=== PATIENT | male | born 1930 | race Caucasian/White ===

== ENCOUNTER 2016-10-09 07:16 | Inpatient (IN) | payer OTHER, MEDICARE ==
[2016-10-09 08:02] LABS: % EOSINOPHILS 1.1 % (0.0-5.0); % LYMPHOCYTES 19.9 % (20.0-50.0); % MONOCYTES 7.3 % (2.0-10.0); % NEUTROPHILS 71.7 % (40.0-80.0); HEMATOCRIT 40.8 % (39.0-49.0); HEMOGLOBIN 13.2 gm/dL (12.6-17.4); MEAN CELL VOLUME 86.7 fl (80-99); MEAN CORPUSCULAR HEMOGLOBIN 28.1 pg (27.0-31.0); MEAN CORPUSCULAR HGB CONC 32.4 pg (28.0-36.0); MEAN PLATELET VOLUME 9.5 fl; NEUTROPHILE ABSOLUTE 3.7 Th/cmm (1.8-8.0); PLATELET COUNT 191 Th/cmm (150-400); RED CELL DISTRIBUTION WIDTH 18.2 % (11.5-20.0); WHITE BLOOD COUNT 5.3 Th/cmm (4.8-10.8)
--- NOTE | 2016-10-09 08:03 | ED Physician Chart ---
Chief Complaint/HPI - Patient Information Date Seen:: 10/09/16 Time Seen:: 07:34 Chief Complaint:: aloc History of Present Illness:: THIS IS AN 86 YO MALE FROM HOME SENT HERE FOR AN EVALUATION AND TREATMENT FOR ALOC. THIS PATIENT IS CHRONICALLY ILL AND IS A NO CODE. THE PATIENT IS DEMENTED AND UNRESPONSIVE TO VERBAL STIMULI HAS SIGNIFICANT HEART DISEASE. Allergies:: Allergies Allergy/AdvReac Type Severity Reaction Status Date / Time No Known Allergies Allergy Verified 10/09/16 07:26 Vitals:: Vital Signs - 8 hr 10/09/16 07:31 Temp 97.4 F HR 55 RR 16 BP 133/78 O2 Sat % 100 Historian:: EMS, Family Member, Medical Records Review:: Nurse's Note Reviewed, Transfer documents Reviewed Review of Systems - Review of Systems General/Constitutional: No fever, No chills, No weight loss, No weakness, No diaphoresis, No edema, No loss of appetite, Other (THIS PATIENT IS UNABLE TO GIVE A REVIEW OF SYSTEMS.) Skin: No skin lesions, No rash, No bruising Head: No headache, No light-headedness Eyes: No loss of vision, No pain, No diplopia ENT: No earache, No nasal drainage, No sore throat, No tinnitus Neck: No neck pain, No swelling, No thyromegaly, No stiffness, No mass noted Cardio Vascular: No chest pain, No palpitations, No PND, No orthopnea, No edema Pulmonary: No SOB, No cough, No sputum, No wheezing GI: No nausea, No vomiting, No diarrhea, No pain, No melena, No hematochezia, No constipation, No hematemesis G/U: No dysuria, No frequency, No hematuria Musculoskeletal: No bone or joint pain, No back pain, No muscle pain Endocrine: No polyuria, No polydipsia Psychiatric: No prior psych history, No depression, No anxiety, No suicidal ideation Hematopoietic: No bruising, No lymphadenopathy Allergic/Immuno: No urticaria, No angioedema Neurological: No syncope, No focal symptoms, No weakness, No paresthesia, No headache, No seizure, No dizziness, No confusion, No vertigo Past Medical History - Past Medical History Obtainable: No Past Medical History: HTN, CAD, Dementia, Other (PROSTATE CANCER) Family History: None Social History: Non Smoker, No Alcohol, No Drug Use, Single Surgical History: None Psychiatricy History: Dementia Medication: Reviewed Family Medical History - Family Member Mother History Unknown: Yes Ethnicity: Living Status: Physical Exam - Physical Examination General/Constitutional: Well-developed, well-nourished, Alert, No distress, GCS 15, Non-toxic appearing, Ambulatory Other Gen/Cons comments:: THIS PATIENT IS ALTERED AND NOT RESPONDING TO VOICE COMMANDS. Head: Atraumatic Eyes: Lids, conjuctiva normal, PERRL, EOMI Skin: Nl inspection, No rash, No skin lesions, No ecchymosis, Well hydrated, No lymphadenopathy ENMT: External ears, nose nl, Nasal exam nl, Lips, teeth, gums nl Neck: Nontender, Full ROM w/o pain, No JVD, No nuchal rigidity, No bruit, No mass, No stridor Respiratory: Nl effort/Exclusion, Clear to Auscultation, No Wheeze/Rhonchi/Rales Cardio Vascular: No murmur, gallop, rubs, NL S1 S2 Other Cardio Vascular comments:: THIS PATIENT HAS A HEART RATE OF 44 AND IRREGULAR. GI: No tenderness/rebounding/guarding, No organomegaly, No hernia, Normal BS's, Nondistended, No mass/bruits, No McBurney tenderness : No CVA tenderness Extremities: No tenderness or effusion, Full ROM, normal strength in all extremities, No edema, Normal digits & nails Neuro/Psych: DTR's symmetric, Normal sensory exam, Normal motor strength, Normal gait, No focal deficits Other Neuro/Psych comments:: THIS PATIENT IS DISORIENTED AND UNRESPONSIVE. Misc: normal gait, Normal back, No paraspinal tenderness Labs/Radiology/EKG Results - Lab Results Results: Abnormal Lab Results 10/09/16 10/09/16 10/09/16 07:30 07:30 07:30 WBC 5.3 RBC 4.70 Hgb 13.2 Hct 40.8 MCV 86.7 MCH 28.1 MCHC Differential 32.4 RDW 18.2 Plt Count 191 MPV 9.5 Neutrophils % 71.7 Lymphocytes % 19.9 L Monocytes % 7.3 Eosinophils % 1.1 Basophils % 0.0 Sodium 137 Potassium 3.8 Chloride 105 Carbon Dioxide 30.8 Anion Gap 5.0 L BUN 6 L Creatinine 0.9 Est GFR ( Amer) TNP Est GFR (Non-Af Amer) TNP BUN/Creatinine Ratio 6.7 Glucose 74 Calcium 9.1 Total Bilirubin 0.7 AST 22 ALT 14 Alkaline Phosphatase 122 H Troponin I 0.01 Total Protein 5.7 L Albumin 2.8 L Globulin 2.9 Albumin/Globulin Ratio 1.0 Triglycerides 70 Cholesterol 165 LDL Cholesterol Direct 54 L HDL Cholesterol 93 H - EKG Interpretations EKG Time:: 07:41 Rate & Rhythm: 46 AND ATRIAL FIB [place]: RIGHT Assessment - Assessment General Assessment: SYMPTOMATIC BRADYCARDIA DEMENTIA ED Septic Shock - . Is Septic Shock (SBP<90, OR Lactate>4 mmol\L) present?: No - <6hrs of presentation: Vital Signs: Vital Signs - 8 hr 10/09/ 07:31 Temp 97.4 F HR 55 RR 16 BP 133/78 O2 Sat % 100 Reassessment (Disposition) - Reassessment Reassessment Condition:: Unchanged - Diagnosis Diagnosis:: SYMPTOMATIC BRADYCARDIA DEMENTIA - Patient Disposition Discharge/Transfer:: Acute Care w/in this hosp Admitted to:: Telemetry Admitting Medical Physician:: Margarito Mckeon Condition at Disposition:: Unchanged ED Discharge Plan - Patient Disposition Admit/Discharge/Transfer: Acute Care w/in this hosp Condition at Disposition: Unchanged
[2016-10-09 08:25] LABS: INR 0.97 (0.5-1.4); PROTHROMBIN TIME (TEST) 10.1 SECONDS (9.5-11.5)
[2016-10-09 08:26] LABS: ALKALINE PHOSPHATASE 122 U/L (34-104); BILIRUBIN,TOTAL 0.7 mg/dL (0.3-1.0); BUN - UREA NITROGEN 6 mg/dL (7-25); BUN/CREATININE RATIO 6.7; CALCIUM SERUM 9.1 mg/dL (8.6-10.3); CARBON DIOXIDE 30.8 mEq/L (21.0-31.0); CHLORIDE 105 mEq/L (98-107); CHOLESTEROL 165 mg/dL (<200); CREATININE - SERUM 0.9 mg/dL (0.7-1.3); GLUCOSE 74 mg/dL (70-105); POTASSIUM SERUM 3.8 mEq/L (3.5-5.1); SGOT 22 U/L (13-39); SGPT/ALT 14 U/L (7-52); SODIUM SERUM 137 mEq/L (136-145); TRIGLYCERIDES 70 mg/dL (<150)
[2016-10-09] MEDS ORDERED: Sodium Chloride 0.45% 1,000 ML IV ONE (08:28)
--- NOTE | 2016-10-09 09:37 | Diagnostic Imaging Report ---
CHEST X-RAY: AP view INDICATION: Shortness of breath COMPARISON: None FINDINGS: There is incomplete visualization of the left lung apex. Suboptimal lung volume are seen with chronic changes. No focal consolidation or effusions. Left basal subsegmental atelectasis versus scarring is noted. Heart size normal. Atherosclerosis is noted. Degenerative changes of the spine are noted. Bilateral nephroureteral stents are partially visualized. IMPRESSION: Chronic lung changes and left basal subsegmental atelectasis versus scarring. No focal consolidation identified. Atherosclerotic vascular disease.
[2016-10-09] MEDS ORDERED: ABIRATERONE ACETATE 1000 MG PO SCH (14:57)
--- NOTE | 2016-10-09 15:57 | History and Physical ---
History of Present Illness - HPI Chief Complaint: pt is gradually getting confused and lethagic bought \to er for aloc HPI: 86 year old male with h/o htn,cad,dementia,prostate ca presented with ALOC, patient is dementia and now less responsive Vital Signs: Last Vital Signs Temp 98 F 10/09/16 08:12 Pulse 47 10/09/16 08:12 Resp 17 10/09/16 08:12 BP 130/63 10/09/16 08:12 Pulse Ox 100 10/09/16 08:12 Past Medical History Cardiovascular: Report: CAD, HTN. 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 History provided by family. Pt. unable to state due to mental status Social History Smoke: No Alcohol: None Drugs: None Lives: With Family, Other Health Maintenance Health Maintenance: Other - Medications Home Medications: Home Medication Medication Instructions Recorded Type Abiraterone Acetate [Zytiga] 1,000 mg PO DAILY 10/09/16 History FLUoxetine HCL [Prozac*] 20 mg PO DAILY 10/09/16 History Furosemide [Lasix] 20 mg PO DAILY 10/09/16 History Gabapentin [Neurontin] 200 mg PO HS 10/09/16 History Memantine HCl 5 mg PO BID 10/09/16 History Potassium Citrate [Potassium 10 meq PO BID 10/09/16 History Citrate ER] Prednisone 10 mg PO DAILY 10/09/16 History - Allergies Allergies/Adverse Reactions: Allergies Allergy/AdvReac Type Severity Reaction Status Date / Time cyclobenzaprine AdvReac Verified 10/09/16 08:22 [From Flexeril] Sulfa (Sulfonamide AdvReac Verified 10/09/16 08:22 Antibiotics) Review of Systems - Review of Systems Constitutional: Report: Weakness, Other (unable to obtain) Eyes: Report: No Significant Respiratory: Report: SOB with Excertion Cardiovascular: Report: Light Headedness Neurological: Report: Confusion Physical Exam - Physical Exam HEENT: Report: Ears Nose Throat within normal limits Neck: Report: Within normal limits Cardiovascular Systems: Report: +s1/s2 noted, Regular, Rate and Rhythm Respiratory: Report: Breath Sounds are within normal limits Abdomen: Report: Non-tender to palpation Back: Report: Inspection of back is within normal limits. Extremities: Report: Non-tender to palpation. Skin: Report: Color of skin is within normal limits (pt is lethrgic unable to do nuero exam) Other Systems Exam: aloc - Lab Results All Lab Results last 24 hours: Laboratory Last Values WBC 5.3 Th/cmm (4.8-10.8) 10/09/16 07:30 RBC 4.70 Mil/cmm (3.80-5.80) 10/09/16 07:30 Hgb 13.2 gm/dL (12.6-17.4) 10/09/16 07:30 Hct 40.8 % (39.0-49.0) 10/09/16 07:30 MCV 86.7 fl (80-99) 10/09/16 07:30 MCH 28.1 pg (27.0-31.0) 10/09/16 07:30 MCHC Differential 32.4 pg (28.0-36.0) 10/09/16 07:30 RDW 18.2 % (11.5-20.0) 10/09/16 07:30 Plt Count 191 Th/cmm (150-400) 10/09/16 07:30 MPV 9.5 fl 10/09/16 07:30 Neutrophils % 71.7 % (40.0-80.0) 10/09/16 07:30 Lymphocytes % 19.9 % (20.0-50.0) L 10/09/16 07:30 Monocytes % 7.3 % (2.0-10.0) 10/09/16 07:30 Eosinophils % 1.1 % (0.0-5.0) 10/09/16 07:30 Basophils % 0.0 % (0.0-2.0) 10/09/16 07:30 PT 10.1 SECONDS (9.5-11.5) 10/09/16 07:30 INR 0.97 (0.5-1.4) 10/09/16 07:30 PTT (Actin FS) 25.5 SECONDS (26.0-38.0) L 10/09/16 07:30 Sodium 137 mEq/L (136-145) 10/09/16 07:30 Potassium 3.8 mEq/L (3.5-5.1) 10/09/16 07:30 Chloride 105 mEq/L (98-107) 10/09/16 07:30 Carbon Dioxide 30.8 mEq/L (21.0-31.0) 10/09/16 07:30 Anion Gap 5.0 (7.0-16.0) L 10/09/16 07:30 BUN 6 mg/dL (7-25) L 10/09/16 07:30 Creatinine 0.9 mg/dL (0.7-1.3) 10/09/16 07:30 Est GFR ( Amer) TNP 10/09/16 07:30 Est GFR (Non-Af Amer) TNP 10/09/16 07:30 BUN/Creatinine Ratio 6.7 10/09/16 07:30 Glucose 74 mg/dL (70-105) 10/09/16 07:30 POC Glucose 78 MG/DL (70 - 105) 10/09/16 15:20 Calcium 9.1 mg/dL (8.6-10.3) 10/09/16 07:30 Total Bilirubin 0.7 mg/dL (0.3-1.0) 10/09/16 07:30 AST 22 U/L (13-39) 10/09/16 07:30 ALT 14 U/L (7-52) 10/09/16 07:30 Alkaline Phosphatase 122 U/L (34-104) H 10/09/16 07:30 Creatine Kinase 27 U/L (30-223) L 10/09/16 07:30 Troponin I 0.01 ng/mL (0.01-0.05) 10/09/16 07:30 Total Protein 5.7 gm/dL (6.0-8.3) L 10/09/16 07:30 Albumin 2.8 gm/dL (4.2-5.5) L 10/09/16 07:30 Globulin 2.9 gm/dL 10/09/16 07:30 Albumin/Globulin Ratio 1.0 (1.0-1.8) 10/09/16 07:30 Triglycerides 70 mg/dL (<150) 10/09/16 07:30 Cholesterol 165 mg/dL (<200) 10/09/16 07:30 LDL Cholesterol Direct 54 mg/dL (75-193) L 10/09/16 07:30 HDL Cholesterol 93 mg/dL (23-92) H 10/09/16 07:30 TSH 1.55 uIU/ml (0.34-5.60) 10/09/16 07:30 Laboratory Results - last 24 hr 10/09/16 15:20 POC Glucose 78 - Assessment Assessment: aloc symtomatic bradycardia h/o dementia h/o cad h/o dementia h/o htn h/o prostate ca - Plan Plan: workup for aloc nuerology consult w/u for rachael cardia cardiology consult placemet? and rest as per ordersheet
[2016-10-09] MEDS ORDERED: D5-0.45NS 1,000 ML IV SCH (16:23)
[2016-10-09] MEDS ORDERED: VTE Chemical Prophylaxis Screen/Admission MC PRN (16:52)
[2016-10-09] MEDS: Fluticasone Propionate 0.05mg/Actuation 16gm Nasal Spray NS SCH (22:29)
--- NOTE | 2016-10-10 10:22 | Consultation ---
Consult Note - Consult Note Service Date: 10/10/16 Consult Note: PHYSICIAN Consultation Note: Date of Admission: 10/09/16 Purpose of Consultation: Chief Complaint: History of Present Illness: Patient KELIN MANUEL was admitted to [facility] Telemetry with SYMPTOMATIC BRADYCARDIA, DEMENTIA. Past Medical History: Allergies Allergy/AdvReac Type Severity Reaction Status Date / Time cyclobenzaprine AdvReac Verified 10/09/16 08:22 [From Flexeril] Sulfa (Sulfonamide AdvReac Verified 10/09/16 08:22 Antibiotics) Vital Signs Temp 96.7 F 10/10/16 08:00 Pulse 74 10/10/16 08:00 Resp 19 10/10/16 08:00 BP 146/73 10/10/16 08:00 Pulse Ox 89 10/10/16 08:00 Intake & Output 10/09/16 10/10/16 10/10/16 18:59 06:59 18:59 Intake Total 1000 Balance 1000 Weight (lbs) 79.379 kg Intake: Intake, IV Amount 1000 Sodium Chloride 0.45% 1, 1000 000 ml @ Wide Open IV . Q0M ONE Rx#:[id number] Other: Stool Characteristics Soft Laboratory Results - last 24 hr 10/09/16 15:20 POC Glucose 78 Home Medication Medication Instructions Recorded Type Abiraterone Acetate [Zytiga] 1,000 mg PO DAILY 10/09/16 History FLUoxetine HCL [Prozac*] 20 mg PO DAILY 10/09/16 History Furosemide [Lasix] 20 mg PO DAILY 10/09/16 History Gabapentin [Neurontin] 200 mg PO HS 10/09/16 History Memantine HCl 5 mg PO BID 10/09/16 History Potassium Citrate [Potassium 10 meq PO BID 10/09/16 History Citrate ER] Prednisone 10 mg PO DAILY 10/09/16 History Current Medications Generic Name Dose Route Start Last Admin Trade Name Freq PRN Reason Stop Dose Admin Fluoxetine HCl 20 mg 10/09/16 14:57 Prozac PO 12/08/16 14:56 DAILY GLORIA Protocol Fluticasone Propionate 1 spr 10/09/16 21:00 10/09/16 22:29 Flonase NS 12/08/16 20:59 Not Given HS GLORIA Furosemide 20 mg 10/09/16 14:57 10/09/16 16:58 Lasix PO 12/08/16 14:56 Not Given DAILY GLORIA Gabapentin 200 mg 10/09/16 21:00 10/09/16 21:15 Neurontin PO 12/08/16 20:59 200 mg HS GLORIA Administration Heparin Sodium (Porcine) 5,000 units 10/09/16 21:00 10/09/16 21:30 Heparin SUBQ 12/08/16 20:59 5,000 units Q12H GLORIA Administration Dextrose/Sodium Chloride 1,000 mls @ 125 mls/hr 10/09/16 16:23 10/09/16 17:20 D5-0.45ns IV 12/08/16 16:22 125 mls/hr .Q8H GLORIA Administration Levothyroxine Sodium 0.2 mg 10/11/16 07:30 Synthroid PO 12/10/16 07:29 QDAC GLORIA Lorazepam 1 mg 10/09/16 14:39 10/09/16 15:06 Ativan IVP 12/08/16 14:38 1 mg Q6HR PRN Administration Anxiety Protocol Memantine 5 mg 10/09/16 14:57 10/09/16 17:21 Namenda PO 12/08/16 14:56 Not Given BID GLORIA Miscellaneous 1,000 mg 10/09/16 14:57 Abiraterone Acetate [Zytiga] PO 12/08/16 14:56 DAILY GLORIA Miscellaneous 10 meq 10/09/16 14:57 Potassium Citrate [Potassium Citrate Er] PO 12/08/16 14:56 BID GLORIA Miscellaneous 1 ea 10/09/16 16:52 Vte Chemical Prophylaxis Screen/ Admission 12/08/16 16:51 PRN PRN PROTOCOL Theophylline 100 mg 10/10/16 10:00 Kali-Dur PO 12/09/16 09:59 DAILY GLORIA Review of Systems: A 12 point ROS was reviewed with the pertinent positive and negatives noted in the HPI. Social History Smoking Status Unknown if ever smoked Drug Use No Alcohol Use No Family Medical History Family Medical History Start: 10/09/16 14: 12 Freq: ONCE Status: Active Document 10/09/16 14:50 CARMEN (Rec: 10/09/16 16:16 CARMEN [email or web address]) Family Medical History Sister Living Status Other Medical History Hx of heart failure. History provided by family. Pt. unable to state due to mental status Mother History Unknown Yes Physical Exam: General: HEENT: Cardio: Respiratory: Abdominal: Genital/Urinary: Extremities: Neurological: Assessment: Plan: Signed, John Gan 10/10/[id number]
--- NOTE | 2016-10-10 11:32 | Consultation ---
DATE OF CONSULTATION: 10/10/[address] Mckeon. HISTORY AND PHYSICAL: This 86-year-old male patient who is confused at home and the patient was found altered level at this time. The patient was brought to the Emergency Room. In the Emergency Room, the patient was found to have atrial fibrillation with slow ventricular response and patient is admitted. PAST MEDICAL HISTORY: Dementia, prostatic cancer with radiation. FAMILY HISTORY: Unremarkable. SOCIAL HISTORY: No history of smoking, alcohol abuse. ALLERGIES: No known allergies. PHYSICAL EXAMINATION: VITAL SIGNS: Blood pressure 130/80, pulse 42, respirations 20. HEAD: Normocephalic. No lumps or bumps. EYES: Pupils equal, reactive to light. Fundi show AV nicking, sclerae white, conjunctivae pink. NECK: Carotid 2+. Normal upstroke. JVD flat. Thyroid not palpable. Lymph nodes not palpable. CHEST: Shows negative diameter. No kyphosis, scoliosis. LUNGS: Bilateral ____ breath sounds. HEART: PMI fifth intercostal space in lateral to midclavicular line. S1 and S2. No S3, S4. Systolic murmur, grade 2/6, lower left sternal border without radiation. ABDOMEN: Soft. Liver, spleen not palpable. No organomegaly. Bowel sounds active. NEUROLOGIC: No focal neurological deficit. EXTREMITIES: Peripheral pulses 2+. No pedal edema. CLINICAL IMPRESSION: Atrial fibrillation with slow ventricular response, dementia, altered level of consciousness, prostate cancer. The patient's condition was discussed with the daughter at length. The patient is not on anticoagulation. The patient's family wishes are not to anticoagulate the patient and no pacemaker. The patient to be no code. JOB# [id number]
[2016-10-10] MEDS: Theophylline 100 mg ER Tab PO SCH (14:57)
[2016-10-10] MEDS: Potassium Chloride 10 mEq ER Tab PO SCH (15:00)
[2016-10-11] MEDS: Fluticasone Propionate 0.05mg/Actuation 16gm Nasal Spray NS SCH ×2 (07:36→21:19)
[2016-10-11] MEDS: Theophylline 100 mg ER Tab PO SCH (09:12)
[2016-10-11] MEDS: Levothyroxine 0.1 Mg Tab PO SCH (09:13)
[2016-10-11] MEDS: Potassium Chloride 10 mEq ER Tab PO SCH ×2 (09:13→16:53)
--- NOTE | 2016-10-11 10:59 | Diagnostic Imaging Report ---
CT scan of the brain without intravenous contrast HISTORY: ALOC Total DLP equals 6:30 CTDI equals 31.2 Axial sections were obtained from the base of the skull to the vertex. There is prominence/enlargement of the ventricular system size. Associated enlargement of cerebral sulci and subarachnoid cisterns. Findings are consistent with changes of generalized cerebral atrophy. No acute parenchymal abnormalities. No acute cerebral hemorrhage. Hypodensity is seen within the supratentorial white matter regions without mass effect. The findings may be associated with chronic small vessel ischemic disease. No extra-axial masses or abnormal fluid collections. There is evidence of for local infarct in the basal ganglia bilaterally. Old the right parietal infarct is noted. IMPRESSION: 1. No acute abnormalities 2. Cerebral atrophy 3. Supratentorial white matter changes that may reflect chronic small vessel ischemic disease . 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
--- NOTE | 2016-10-11 12:36 | General Progress Note ---
Subjective - Review of Systems Events since last encounter: There is no new change Objective - Results Result Diagrams: 10/09/16 07:30 10/09/16 07:30 Recent Labs: Laboratory Last Values WBC 5.3 Th/cmm (4.8-10.8) 10/09/16 07:30 RBC 4.70 Mil/cmm (3.80-5.80) 10/09/16 07:30 Hgb 13.2 gm/dL (12.6-17.4) 10/09/16 07:30 Hct 40.8 % (39.0-49.0) 10/09/16 07:30 MCV 86.7 fl (80-99) 10/09/16 07:30 MCH 28.1 pg (27.0-31.0) 10/09/16 07:30 MCHC Differential 32.4 pg (28.0-36.0) 10/09/16 07:30 RDW 18.2 % (11.5-20.0) 10/09/16 07:30 Plt Count 191 Th/cmm (150-400) 10/09/16 07:30 MPV 9.5 fl 10/09/16 07:30 Neutrophils % 71.7 % (40.0-80.0) 10/09/16 07:30 Lymphocytes % 19.9 % (20.0-50.0) L 10/09/16 07:30 Monocytes % 7.3 % (2.0-10.0) 10/09/16 07:30 Eosinophils % 1.1 % (0.0-5.0) 10/09/16 07:30 Basophils % 0.0 % (0.0-2.0) 10/09/16 07:30 PT 10.1 SECONDS (9.5-11.5) 10/09/16 07:30 INR 0.97 (0.5-1.4) 10/09/16 07:30 PTT (Actin FS) 25.5 SECONDS (26.0-38.0) L 10/09/16 07:30 Sodium 137 mEq/L (136-145) 10/09/16 07:30 Potassium 3.8 mEq/L (3.5-5.1) 10/09/16 07:30 Chloride 105 mEq/L (98-107) 10/09/16 07:30 Carbon Dioxide 30.8 mEq/L (21.0-31.0) 10/09/16 07:30 Anion Gap 5.0 (7.0-16.0) L 10/09/16 07:30 BUN 6 mg/dL (7-25) L 10/09/16 07:30 Creatinine 0.9 mg/dL (0.7-1.3) 10/09/16 07:30 Est GFR ( Amer) TNP 10/09/16 07:30 Est GFR (Non-Af Amer) TNP 10/09/16 07:30 BUN/Creatinine Ratio 6.7 10/09/16 07:30 Glucose 74 mg/dL (70-105) 10/09/16 07:30 POC Glucose 78 MG/DL (70 - 105) 10/09/16 15:20 Calcium 9.1 mg/dL (8.6-10.3) 10/09/16 07:30 Total Bilirubin 0.7 mg/dL (0.3-1.0) 10/09/16 07:30 AST 22 U/L (13-39) 10/09/16 07:30 ALT 14 U/L (7-52) 10/09/16 07:30 Alkaline Phosphatase 122 U/L (34-104) H 10/09/16 07:30 Creatine Kinase 27 U/L (30-223) L 10/09/16 07:30 Troponin I 0.01 ng/mL (0.01-0.05) 10/09/16 07:30 Total Protein 5.7 gm/dL (6.0-8.3) L 10/09/16 07:30 Albumin 2.8 gm/dL (4.2-5.5) L 10/09/16 07:30 Globulin 2.9 gm/dL 10/09/16 07:30 Albumin/Globulin Ratio 1.0 (1.0-1.8) 10/09/16 07:30 Triglycerides 70 mg/dL (<150) 10/09/16 07:30 Cholesterol 165 mg/dL (<200) 10/09/16 07:30 LDL Cholesterol Direct 54 mg/dL (75-193) L 10/09/16 07:30 HDL Cholesterol 93 mg/dL (23-92) H 10/09/16 07:30 TSH 1.55 uIU/ml (0.34-5.60) 10/09/16 07:30 RPR NONREACTIVE (NONREACTIVE) 10/09/16 07:30 - Physical Exam Vitals and I&O: Vital Signs Temp 97.5 F 10/11/16 08:36 Pulse 88 10/11/16 08:36 Resp 17 10/11/16 08:36 BP 115/64 10/11/16 09:13 Pulse Ox 96 10/11/16 08:36 Intake & Output 10/10/16 10/11/16 10/11/16 18:59 06:59 18:59 Intake Total 450 Balance 450 Weight (lbs) 79.379 kg 79.379 kg Intake: Oral 450 Other: # Voids 3 Active Medications: Current Medications Fluoxetine HCl (Prozac) 20 mg PO DAILY GLORIA Stop: 12/10/16 08:59 Last Admin: 10/11/16 12:34 Dose: 20 mg Fluticasone Propionate (Flonase) 1 spr NS HS GLORIA Stop: 12/08/16 20:59 Last Admin: 10/11/16 07:36 Dose: Not Given Furosemide (Lasix) 20 mg PO DAILY GLORIA Stop: 12/08/16 14:56 Last Admin: 10/11/16 09:13 Dose: 20 mg Gabapentin (Neurontin) 200 mg PO HS GLORIA Stop: 12/08/16 20:59 Last Admin: 10/11/16 07:36 Dose: Not Given Heparin Sodium (Porcine) (Heparin) 5,000 units SUBQ Q12H GLORIA Stop: 12/08/16 20:59 Last Admin: 10/11/16 09:20 Dose: 5,000 units Dextrose/Sodium Chloride (D5-0.45ns) 1,000 mls @ 125 mls/hr IV .Q8H GLORIA Stop: 12/08/16 16:22 Last Admin: 10/09/16 17:20 Dose: 125 mls/hr Levothyroxine Sodium (Synthroid) 0.2 mg PO QDAC GLORIA Stop: 12/10/16 07:29 Last Admin: 10/11/16 09:13 Dose: 0.2 mg Lorazepam (Ativan) 1 mg PO Q6HR PRN; Protocol PRN Reason: Anxiety Stop: 12/09/16 18:54 Last Admin: 10/11/16 00:16 Dose: 1 mg Memantine (Namenda) 5 mg PO BID [facility] Stop: 12/08/16 14:56 Last Admin: 10/11/16 09:13 Dose: 5 mg Miscellaneous (Abiraterone Acetate [Zytiga]) 1,000 mg PO DAILY [facility] Stop: 12/08/16 14:56 Miscellaneous (Vte Chemical Prophylaxis Screen/ Admission) 1 ea MC PRN PRN PRN Reason: PROTOCOL Stop: 12/08/16 16:51 Potassium Chloride (Klor-Con) 10 meq PO BID GLORIA Stop: 12/09/16 11:59 Last Admin: 10/11/16 09:13 Dose: 10 meq Theophylline (Kali-Dur) 100 mg PO DAILY [facility] Stop: 12/09/16 11:59 Last Admin: 10/11/16 09:12 Dose: 100 mg Zolpidem Tartrate (Ambien) 10 mg PO HS PRN PRN Reason: Insomnia Stop: 12/09/16 18:55 Last Admin: 10/10/16 21:51 Dose: 10 mg General: No acute distress HEENT: Atraumatic Cardiovascular: Regular rate, Normal S1, Normal S2 Assessment/Plan - Assessment Assessment: aloc symtomatic bradycardia h/o dementia h/o cad h/o dementia h/o htn h/o prostate ca - Plan Plan: workup for aloc nuerology consult w/u for rachael cardia cardiology consult placemet? and rest as per ordersheet
--- NOTE | 2016-10-11 14:21 | Cardiology ---
10/10/[address] Mckeon/ M-MODE ECHOCARDIOGRAM: Mitral valve, anterior leaflet of mitral valve shows normal excursion, EF velocity. Posterior leaflet of mitral valve shows normal excursion. Left ventricular posterior wall shows increased thickness, normal excursion. Interventricular septum shows normal thickness excursion. Ejection fraction 60%. Left atrium enlarged 4.2 cm. Aortic root shows normal dimension, normal excursion of aortic leaflets. CONCLUSION: Minimal hypertrophy of the left ventricle. Left atrial enlargement, ejection fraction 60%. 2D ECHO: Long axis view show normal size left ventricle with hypertrophy of the left ventricle. Left atrium enlarged. Aortic root shows normal dimension, normal excursion of aortic leaflets. Short axis view of mitral valve normal. Short axis view of aortic valve normal. Apical four chamber view showed normal sized left ventricle with hypertrophy of the left ventricle. Left atrium enlarged. Right ventricular cavity, right atrium normal, no pericardial effusion. CONCLUSION: Hypertrophy of the left ventricle. Left atrial enlargement, ejection fraction 60%. Doppler study shows prominent A wave consistent with poor compliance of left ventricle. Mild mitral regurgitation, mild tricuspid regurgitation, mild aortic regurgitation. JOB# [id number]
[2016-10-11 14:43] VITALS: BP 125/70
--- NOTE | 2016-10-11 15:10 | Consultation ---
DATE OF CONSULTATION: 10/11/2016 PHYSICIAN REQUESTING CONSULTATION: Mian Mckeon M.D. REASON FOR CONSULTATION: Altered level of consciousness. HISTORY OF PRESENT ILLNESS: This patient is an 86-year-old male admitted for altered level of consciousness and some traumatic bradycardia. Chart is reviewed. The patient is interviewed and staff was spoken to. The patient's family has been spoken to. The patient is reported to have been on 20 mg of the Prozac prior to the hospitalization and the patient at this time is very slow to respond and has been mumbling and is not able to provide much of information. The patient's family has been mentioned that this has been acute change in the past 24 hours prior to the hospitalization. PAST PSYCHIATRIC HISTORY: Details are not known and patient is being medically worked up for the reason for bradycardia, possible ____. PHYSICAL OR SEXUAL ABUSE HISTORY: None. SUBSTANCE ABUSE HISTORY: None. SOCIAL HISTORY: The patient has a very good family support and the patient is being closely monitored at this time. MENTAL STATUS EXAMINATION: The patient is an 86-year-old, looking his stated age, superficially cooperative. Eye contact is poor. Mood is noted to be irritable. Affect is constricted. The patient is not able to provide much of information. The patient is mumbling to self. The patient, however, has been responding to the command; however, not able to identify the family members. The patient is not suicidal or homicidal. DIAGNOSTIC IMPRESSION: 1A. Major depressive disorder by history. 1B. Rule out delirium. 1C. Dementia and behavioral change, secondary trait. TREATMENT PLAN: The patient's Prozac is going to be decreased to 10 mg and the patient's Ambien is going to be decreased to 5 mg. The patient is going to be closely monitored. Once stabilized, the patient is going to be evaluated for the need to go to the Geropsychiatric Unit. Thank you Dr. Mckeon for allowing me to participate in the care of the patient. JOB# [id number]
[2016-10-11] MEDS: Albuterol Nebulizer 2.5mg/3mL HHN PRN ×2 (17:38→19:07)
[2016-10-11] MEDS: Acetylcysteine 10% 10 ML VIAL HHN SCH ×2 (17:38→19:06)
--- NOTE | 2016-10-12 01:08 | Admit Criteria Form ---
Admit Criteria Forms - Admit Criteria Diagnosis: TELEMETRY CARE Telemetry Admission Guidelines (Place 'X' for any and all applicable criteria): Admission to telemetry [A] may be indicated for ANY ONE of the following(1)(2)(3 )(4)(5): [X ]I. Cardiac disease, including ANY ONE of the following (9)(10)(11)(12)( 13): [ ]a) Postacute PA [ ]b) Low-risk patients with ST-segment elevation PA who have undergone successful percutaneous coronary intervention [ ]c) Unstable angina [ ]d) Suspected PA (until it is ruled out) [ ]e) Post cardiac surgery (first 48 to 72 hours unless complications occur) [X ]f) Acute arrhythmias (including significant tachycardia or bradycardia) [B] [ ]g) Firing of an implantable cardioverter defibrillator [C] [ ]h) Suspected pacemaker or implantable cardioverter defibrillator malfunction (10) [ ]i) New administration or adjustment of an antiarrhythmic drug [D ] [ ]j) Child admitted for acute congestive heart failure [ ]j) Long QT syndrome [ ]k) Advanced heart block (eg, second-degree Mobitz type II, third- degree heart block) [ ]l) Acute myocarditis or pericarditis [ ]m) Short-term (ambulatory or inpatient) monitoring after a cardiac procedure as indicated by ANY ONE of the following [E]: [ ]i) Electrophysiologic studies [ ]ii) Percutaneous coronary intervention with stent placement [ ]iii) Pacemaker placement with cardiac conduction defect [ ]iv) Implantable cardiac defibrillator placement [ ]II. Drug overdose or poisoning with substance that causes arrhythmias or QT prolongation (eg, phenothiazines, sympathomimetic agents, cyclic antidepressants, digitalis, antiarrhythmic drugs)(15) [ ]III. Short-term (ambulatory or inpatient) monitoring after therapeutic or diagnostic procedure requiring conscious sedation or anesthesia (eg, endoscopy, elective cardioversion) [ ]IV. Acute cerebrovascular even[F](18) [ ]V. Massive blood transfusion (eg, at least 10 units of packed red blood cells in 24 hours) [ ]. Variceal bleeding after endoscopy, sclerotherapy, or IV vasopressin [ ]VII. Uncorrected electrolyte abnormalities associated with an increased risk of dangerous arrhythmia [G]; examples include [ ]a) Hyperkalemia with attributable ECG changes [ ]b) Potassium greater than 6.5 mmol/L (mEq/L) in a patient without history of chronic renal disease [ ]c) Prolonged QT attributed to hypokalemia, hypomagnesemia, or hypocalcemia [ ]VIII.Unexplained syncope or other neurologic event suspected of being due to arrhythmia due to a finding that increases risk; examples include(19)(20)(21): [ ]a) High-risk ECG findings (eg, bifascicular block, bradycardia, abnormal QT interval, ventricular pre- excitation) [ ]b) History of previous syncope due to arrhythmia [ ]c) Abnormal ventricular function (eg, reduced ejection fraction ) [ ]d) Exertional or supine syncope [ ]e) Concerning syncope characteristics (eg, sudden loss of consciousness without prodrome) [ ]f) Family history of sudden [ ]g) Use of arrhythmogenic medication [ ]h) Suspected cardiac ischemia [ ]i) Known channelopathy (eg, long QT syndrome, Brugada syndrome, or catecholaminergic paroxysmal ventricular tachycardia) [ ]j) Known structural heart disease (eg, hypertrophic cardiomyopathy , severe valvular disease) [ ]k) Palpitations preceding syncope The original [employer] content created by [employer] has been revised. The portions of the content which have been revised are identified through the use of italic text or in bold, and [facility] has neither reviewed nor approved the modified material. All other unmodified content is copyright [employer]. Please see references footnoted in the original [employer] edition 2016 Admit Criteria Met?: Yes
[2016-10-12] MEDS: Acetylcysteine 10% 10 ML VIAL HHN SCH ×4 (01:09→18:43)
[2016-10-12] MEDS: Albuterol Nebulizer 2.5mg/3mL HHN PRN ×3 (01:09→18:43)
[2016-10-12 07:15] LABS: HEMATOCRIT 42.3 % (39.0-49.0); HEMOGLOBIN 13.8 gm/dL (12.6-17.4); MEAN CELL VOLUME 87.5 fl (80-99); MEAN CORPUSCULAR HEMOGLOBIN 28.7 pg (27.0-31.0); MEAN CORPUSCULAR HGB CONC 32.7 pg (28.0-36.0); MEAN PLATELET VOLUME 9.8 fl; PLATELET COUNT 150 Th/cmm (150-400); RED BLOOD COUNT 4.83 Mil/cmm (3.80-5.80); RED CELL DISTRIBUTION WIDTH 18.2 % (11.5-20.0); WHITE BLOOD COUNT 4.2 Th/cmm (4.8-10.8)
[2016-10-12 07:31] LABS: ANION GAP 10.4 (7.0-16.0); BUN - UREA NITROGEN 9 mg/dL (7-25); BUN/CREATININE RATIO 11.3; CALCIUM SERUM 8.6 mg/dL (8.6-10.3); CARBON DIOXIDE 25.3 mEq/L (21.0-31.0); CHLORIDE 102 mEq/L (98-107); CHOLESTEROL 159 mg/dL (<200); CREATININE - SERUM 0.8 mg/dL (0.7-1.3); GLUCOSE 124 mg/dL (70-105); POTASSIUM SERUM 3.7 mEq/L (3.5-5.1); SODIUM SERUM 134 mEq/L (136-145); TRIGLYCERIDES 82 mg/dL (<150)
[2016-10-12 08:03] LABS: BAND NEUTROPHILE 2 % (0-10); EOSINOPHIL 1 % (0-5); NEUTROPHILS 82 % (40-80); TOTAL CELLS COUNTED 100
[2016-10-12 08:04] LABS: PLATELET ESTIMATE ADEQUATE (NORMAL); PLATELET MORPHOLOGY PLATELET CLUMPS SEEN (NORMAL); POIKILOCYTOSIS 1+
[2016-10-12] MEDS ORDERED: PREDNISONE 10 MG PO SCH (09:00)
[2016-10-12] MEDS: Levothyroxine 0.1 Mg Tab PO SCH (09:02)
[2016-10-12] MEDS: Theophylline 100 mg ER Tab PO SCH (09:02)
[2016-10-12] MEDS: Potassium Chloride 10 mEq ER Tab PO SCH ×3 (09:03→17:43)
--- NOTE | 2016-10-12 11:53 | General Progress Note ---
Subjective - Review of Systems Events since last encounter: patient still confused Objective - Results Result Diagrams: 10/12/16 06:10 10/12/16 06:10 Recent Labs: Laboratory Last Values WBC 4.2 Th/cmm (4.8-10.8) L D 10/12/16 06:10 RBC 4.83 Mil/cmm (3.80-5.80) 10/12/16 06:10 Hgb 13.8 gm/dL (12.6-17.4) 10/12/16 06:10 Hct 42.3 % (39.0-49.0) 10/12/16 06:10 MCV 87.5 fl (80-99) 10/12/16 06:10 MCH 28.7 pg (27.0-31.0) 10/12/16 06:10 MCHC Differential 32.7 pg (28.0-36.0) 10/12/16 06:10 RDW 18.2 % (11.5-20.0) 10/12/16 06:10 Plt Count 150 Th/cmm (150-400) D 10/12/16 06:10 MPV 9.8 fl 10/12/16 06:10 Neutrophils % 71.7 % (40.0-80.0) 10/09/16 07:30 Band Neutrophils % 2 % (0-10) 10/12/16 06:10 Lymphocytes % 19.9 % (20.0-50.0) L 10/09/16 07:30 Monocytes % 7.3 % (2.0-10.0) 10/09/16 07:30 Eosinophils % 1.1 % (0.0-5.0) 10/09/16 07:30 Basophils % 0.0 % (0.0-2.0) 10/09/16 07:30 Neutrophils (Manual) 82 % (40-80) H 10/12/16 06:10 Lymphocytes 9 % (20-50) L 10/12/16 06:10 Monocytes 6 % (2-10) 10/12/16 06:10 Eosinophils 1 % (0-5) 10/12/16 06:10 Platelet Estimate ADEQUATE (NORMAL) 10/12/16 06:10 Platelet Morphology PLATELET CLUMPS SEEN (NORMAL) 10/12/16 06:10 Poikilocytosis 1+ 10/12/16 06:10 RBC Morph Micro Appear ABNORMAL (NORMAL) 10/12/16 06:10 PT 10.1 SECONDS (9.5-11.5) 10/09/16 07:30 INR 0.97 (0.5-1.4) 10/09/16 07:30 PTT (Actin FS) 25.5 SECONDS (26.0-38.0) L 10/09/16 07:30 Sodium 134 mEq/L (136-145) L 10/12/16 06:10 Potassium 3.7 mEq/L (3.5-5.1) 10/12/16 06:10 Chloride 102 mEq/L (98-107) 10/12/16 06:10 Carbon Dioxide 25.3 mEq/L (21.0-31.0) 10/12/16 06:10 Anion Gap 10.4 (7.0-16.0) 10/12/16 06:10 BUN 9 mg/dL (7-25) 10/12/16 06:10 Creatinine 0.8 mg/dL (0.7-1.3) 10/12/16 06:10 Est GFR ( Amer) TNP 10/12/16 06:10 Est GFR (Non-Af Amer) TNP 10/12/16 06:10 BUN/Creatinine Ratio 11.3 10/12/16 06:10 Glucose 124 mg/dL (70-105) H 10/12/16 06:10 POC Glucose 78 MG/DL (70 - 105) 10/09/16 15:20 Calcium 8.6 mg/dL (8.6-10.3) 10/12/16 06:10 Total Bilirubin 0.7 mg/dL (0.3-1.0) 10/09/16 07:30 AST 22 U/L (13-39) 10/09/16 07:30 ALT 14 U/L (7-52) 10/09/16 07:30 Alkaline Phosphatase 122 U/L (34-104) H 10/09/16 07:30 Ammonia 29 umol/L (16-53) 10/11/16 14:36 Creatine Kinase 27 U/L (30-223) L 10/09/16 07:30 Troponin I 0.01 ng/mL (0.01-0.05) 10/09/16 07:30 Total Protein 5.7 gm/dL (6.0-8.3) L 10/09/16 07:30 Albumin 2.8 gm/dL (4.2-5.5) L 10/09/16 07:30 Globulin 2.9 gm/dL 10/09/16 07:30 Albumin/Globulin Ratio 1.0 (1.0-1.8) 10/09/16 07:30 Triglycerides 82 mg/dL (<150) 10/12/16 06:10 Cholesterol 159 mg/dL (<200) 10/12/16 06:10 LDL Cholesterol Direct 59 mg/dL (75-193) L 10/12/16 06:10 HDL Cholesterol 87 mg/dL (23-92) 10/12/16 06:10 TSH 0.89 uIU/ml (0.34-5.60) 10/12/16 06:10 RPR NONREACTIVE (NONREACTIVE) 10/09/16 07:30 - Physical Exam Vitals and I&O: Vital Signs Temp 98.7 F 10/12/16 08:00 Pulse 83 10/12/16 09:55 Resp 18 10/12/16 09:55 BP 114/71 10/12/16 09:02 Pulse Ox 95 10/12/16 09:55 Intake & Output 10/11/16 10/12/16 10/12/16 18:59 06:59 18:59 Intake Total 1250 Balance 1250 Weight (lbs) 79.379 kg Intake: Oral 1250 Other: # Voids 4 # Bowel Movements 0 Active Medications: Current Medications Acetaminophen (Tylenol) 650 mg PO Q4H PRN PRN Reason: pain Stop: 12/10/16 15:12 Last Admin: 10/12/16 09:03 Dose: 650 mg Acetylcysteine (Mucomyst 10%) 3 ml HHN Q6H GLORIA Stop: 12/10/16 14:59 Last Admin: 10/12/16 10:01 Dose: Not Given Albuterol Sulfate (Albuterol 2.5mg/3ml Neb Ud) 2.5 mg HHN Q4H PRN PRN Reason: Shortness of Breath or Wheeze Stop: 12/10/16 14:48 Last Admin: 10/12/16 07:14 Dose: 2.5 mg Fluoxetine HCl (Prozac) 10 mg PO DAILY GLORIA Stop: 12/10/16 08:59 Last Admin: 10/12/16 09:02 Dose: 10 mg Fluticasone Propionate (Flonase) 1 spr NS HS GLORIA Stop: 12/08/16 20:59 Last Admin: 10/11/16 21:19 Dose: 1 spr Fluticasone Propionate (Flonase) 1 spr NS HS GLORIA Stop: 12/10/16 20:59 Furosemide (Lasix) 20 mg PO DAILY GLORIA Stop: 12/08/16 14:56 Last Admin: 10/12/16 09:02 Dose: 20 mg Gabapentin (Neurontin) 200 mg PO HS GLORIA Stop: 12/08/16 20:59 Last Admin: 10/11/16 21:19 Dose: 200 mg Heparin Sodium (Porcine) (Heparin) 5,000 units SUBQ Q12H GLORIA Stop: 12/08/16 20:59 Last Admin: 10/12/16 09:03 Dose: 5,000 units Dextrose/Sodium Chloride (D5-0.45ns) 1,000 mls @ 125 mls/hr IV .Q8H GLORIA Stop: 12/08/16 16:22 Last Admin: 10/09/16 17:20 Dose: 125 mls/hr Levothyroxine Sodium (Synthroid) 0.2 mg PO QDAC GLORIA Stop: 12/10/16 07:29 Last Admin: 10/12/16 09:02 Dose: 0.2 mg Loratadine (Claritin) 10 mg PO Q48HR GLORIA Stop: 12/10/16 14:44 Last Admin: 10/11/16 16:53 Dose: 10 mg Lorazepam (Ativan) 1 mg PO Q6HR PRN; Protocol PRN Reason: Anxiety Stop: 12/09/16 18:54 Last Admin: 10/11/16 00:16 Dose: 1 mg Memantine (Namenda) 5 mg PO BID GLORIA Stop: 12/08/16 14:56 Last Admin: 10/12/16 09:02 Dose: 5 mg Miscellaneous (Abiraterone Acetate [Zytiga]) 1,000 mg PO DAILY GLORIA Stop: 12/08/16 14:56 Miscellaneous (Vte Chemical Prophylaxis Screen/ Admission) 1 ea PRN PRN PRN Reason: PROTOCOL Stop: 12/08/16 16:51 Potassium Chloride (Klor-Con) 10 meq PO BID [facility] Stop: 12/09/16 11:59 Last Admin: 10/12/16 09:04 Dose: 10 meq Prednisone (Deltasone) 10 mg PO DAILY [facility] Stop: 12/11/16 08:59 Last Admin: 10/12/16 09:03 Dose: 10 mg Theophylline (Kali-Dur) 100 mg PO DAILY [facility] Stop: 12/09/16 11:59 Last Admin: 10/12/16 09:02 Dose: 100 mg Zolpidem Tartrate (Ambien) 5 mg PO HS PRN PRN Reason: Insomnia Stop: 12/09/16 18:55 General: No acute distress HEENT: Atraumatic Cardiovascular: Regular rate, Normal S1, Normal S2 Assessment/Plan - Assessment Assessment: aloc symtomatic bradycardia h/o dementia h/o cad h/o dementia h/o htn h/o prostate ca - Plan Plan: workup for aloc nuerology consult w/u for rachael cardia cardiology consult placemet? and rest as per ordersheet
--- NOTE | 2016-10-12 15:26 | Diagnostic Imaging Report ---
MRI of the brain HISTORY: Stroke, CVA Multiple MRI sequences were obtained in the axial, coronal, and sagittal planes. There is enlargement of the ventricular system along with enlargement of cerebral sulci and subarachnoid cisterns reflecting atrophy. Periventricular increased signal is noted about the periphery of the lateral ventricles on T2 and FLAIR images. In addition, extensive and numerous hyperintense foci are seen on these sequences scattered throughout the supratentorial white matter regions. The findings may be associated with chronic small vessel ischemic disease. Focal hyperintensity noted in the right parietal white matter region on T2 and FLAIR images without mass effect. Changes on diffusion images appear to be related to "T2 shine-through". Finding is probably related to an old infarct. Slight hypointensity in T2 gradient echo sequences in this area may be associated with old hemorrhage. There is an approximate 1.5 x 1.0 cm abnormal focus in the left thalamus. This is characterized by bright increased signal intensity on diffusion images. No significant mass effect. MRI signal characteristics are consistent with changes of an acute ischemic infarct. A smaller focus is noted in the right talus that may be also associated with changes of an acute ischemic infarct. Clinical correlation needed. The cerebellum appears normal. No focal lesions. The brainstem appears normal. The seventh/eighth nerve complexes are seen bilaterally and appear normal. No abnormalities are seen in the region of sella turcica/pituitary gland. Normal aeration of paranasal sinuses. IMPRESSION: 1. Abnormal changes in the left and to lesser degree right thalamus. MRI signal characteristics are consistent with changes of acute ischemic infarcts. Clinical correlation is needed. 2. Findings within the right parietal white matter region most likely associated with an old infarct. A small focus of old hemorrhage may be present. 3. Extensive supratentorial white matter changes probably associated with chronic small vessel ischemic disease. 4. Generalized cerebral atrophy
[2016-10-12 18:06] LABS: URINE BILIRUBIN NEGATIVE (NEGATIVE); URINE BLOOD LARGE (NEGATIVE); URINE COLOR AMBER; URINE GLUCOSE (UA) NEGATIVE (NEGATIVE); URINE KETONE NEGATIVE (NEGATIVE)
[2016-10-12 18:07] LABS: URINE BACTERIA 1+ /hpf (NONE SEEN); URINE EPITHELIAL CELLS FEW /lpf (FEW); URINE PROTEIN 100 mg/dL (NEGATIVE); URINE RBC >100 /hpf (0-5)
[2016-10-12 18:08] LABS: URINE AMORPHOUS SEDIMENT MODERATE URATES (NONE SEEN)
[2016-10-12] MEDS ORDERED: Levofloxacin 500mg/100mL 500 MG/100 ML BAG IV SCH (18:30)
[2016-10-12] MEDS: Fluticasone Propionate 0.05mg/Actuation 16gm Nasal Spray NS SCH (20:39)
[2016-10-13] MEDS: Acetylcysteine 10% 10 ML VIAL HHN SCH ×3 (00:35→12:23)
[2016-10-13] MEDS: Albuterol Nebulizer 2.5mg/3mL HHN PRN ×4 (00:36→20:44)
[2016-10-13] MEDS: D5-0.45NS 1,000 ML IV SCH ×2 (03:31→15:54)
--- NOTE | 2016-10-13 06:33 | Progress Notes ---
DATE: 10/12/2016 SUBJECTIVE: Staff was spoken to. The patient is interviewed. The patient's family has been spoken to in detail on 10/11/2016. The patient is isolated and withdrawn. The patient is noted to be depressed. The patient is not able to communicate well at this time. The patient's family has been mentioning that until recently, the patient has been taking care of his ADLs, and has been walking and has been communicating well. The patient is being followed up by a neurologist on an outpatient basis. The patient was on 50 mg of the Zoloft, which was not helping and hence the Zoloft has been discontinued, and the patient has been placed on 20 mg of the Prozac. The patient's Prozac has been changed to 10 mg because the patient is noted to be very confused and is not making much sense. The patient is currently being worked up for possible CVA. The patient's family has been very supportive. The patient is currently getting the 10 mg of Prozac in the morning and also getting the gabapentin 200 mg at bedtime and Ativan on a p.r.n. basis, and the patient 's zolpidem is being changed to 5 mg on a p.r.n. basis. ASSESSMENT: The patient is still depressed. PLAN: To continue the patient with the supportive therapy. I encouraged the patient to verbalize the concerns. JOB# [id number]
--- NOTE | 2016-10-13 10:14 | Consultation ---
DATE OF CONSULTATION: 10/12/2016 HISTORY OF PRESENT ILLNESS: The patient is an 86-year-old. The family noted that on Wednesday he was not responding normally. He was altered. Also noted more weakness in the right side, some difficulty with speech. The patient is less responsive. Initially he had some difficulty with swallowing. Communication seems to be somewhat better as far as diet is concerned. Able to swallow, but ____ needs to be fed. Still weakness generally. Before he was before he was able to walk. ____ confused. PAST MEDICAL HISTORY: Hypertension, coronary artery disease, CA of prostate, history of dementia. History of bipolar. MEDICATIONS: Prozac, Lasix, Neurontin, prednisone. ALLERGIES: As noted in the chart. REVIEW OF SYSTEMS: 12 point negative, except for above. PHYSICAL EXAMINATION: VITAL SIGNS: Temperature 98.2, blood pressure 130/70, pulse is 74. NECK: Supple, no bruits. HEART: Sounds S1, S2. LUNGS: Clear. NEUROLOGICAL: The patient is awake, gives me his name, does not give me his age. Does not give a month. He is able to name simple objects as pen and glasses. Cranial ____ difficult to know the right field. Pupils react to light. No myofascial paralysis. MOTOR: He has increased tone, tremor, more action than resting along with some cogwheel rigidity. Very slow movements. Patient drifts on the right. Right leg is definitely weaker compared to the left. Reflexes 1+. Difficult to ____ lower extremities. INVESTIGATIONS: The patient abnormal acute stroke, 1.5 x 1 cm in the left thalamus. The patient has history of previous stroke in the right parietal area. IMPRESSION: 1. Acute stroke left thalamus. 2. Dementia. 3. Coronary artery disease. 4. Hypertension. 5. Prostate carcinoma. PLAN: The patient will need physical therapy rehab. We will check his carotid Doppler. JOB# [id number]
[2016-10-13] MEDS: Theophylline 100 mg ER Tab PO SCH (10:15)
[2016-10-13] MEDS: Potassium Chloride 10 mEq ER Tab PO SCH ×2 (10:15→17:51)
[2016-10-13] MEDS: Levothyroxine 0.1 Mg Tab PO SCH (10:22)
--- NOTE | 2016-10-13 12:29 | Consultation ---
Consult Note - Consult Note Service Date: 10/13/16 Referring Physician: Margarito Mckeon Consult Note: PHYSICIAN Consultation Note: Date of Admission: 10/09/16 Purpose of Consultation: Chief Complaint: Patient KELIN MANUEL was admitted to [facility] Telemetry with SYMPTOMATIC BRADYCARDIA, DEMENTIA. History of Present Illness: 86 Y male admitted to the hospital for ALOC, bradycardia. patient is severely demented and unable to provide any meaningful history. on initial evaluation, her temoperature was 97.4 and WBC Count was 5,300. Urine hematuria, pyuria and bacteriuria. Levaquin wasstarted and ID Consult was called to co-manage the case. Patient remains afebrile. Past Medical History: Dementia, CAD, HTN, Prostate CA. Diagnoses UNSPECIFIED DEMENTIA WITH BEHAVIORAL DISTURBANCE (10/09/16) BIPOLAR DISORDER, UNSPECIFIED (10/09/16) MAJOR DEPRESSIVE DISORDER, RECURRENT, UNSPECIFIED (10/09/16) ESSENTIAL (PRIMARY) HYPERTENSION (10/09/16) ATHSCL HEART DISEASE OF [place] CORONARY ARTERY W/O ANG PCTRS (10/09/16) GASTRO-ESOPHAGEAL REFLUX DISEASE WITHOUT ESOPHAGITIS (10/09/16) BRADYCARDIA, UNSPECIFIED (10/09/16) TRANSIENT ALTERATION OF AWARENESS (10/09/16) DO NOT RESUSCITATE (10/09/16) PERSONAL HISTORY OF MALIGNANT NEOPLASM OF PROSTATE (10/09/16) Allergies Allergy/AdvReac Type Severity Reaction Status Date / Time cyclobenzaprine AdvReac Verified 10/09/16 08:22 [From Flexeril] Sulfa (Sulfonamide AdvReac Verified 10/09/16 08:22 Antibiotics) Vital Signs Temp 98.0 F 10/13/16 08:00 Pulse 94 10/13/16 08:00 Resp 17 10/13/16 08:00 BP 117/60 10/13/16 10:22 Pulse Ox 98 10/13/16 08:00 Intake & Output 10/12/16 10/13/16 10/13/16 18:59 06:59 18:59 Intake Total 850 Balance 850 Weight (lbs) 79.379 kg 79.379 kg Intake: Oral 850 Other: # Voids 3 # Bowel Movements 1 Laboratory Results - last 24 hr 10/12/16 17:50 Urine Source CLEAN C Urine Color JANET Urine Clarity HAZY Urine pH 6.0 Ur Specific [place] 1.015 Urine Protein 100 H Urine Glucose (UA) NEGATIVE Urine Ketones NEGATIVE Urine Blood LARGE H Urine Nitrate NEGATIVE Urine Bilirubin NEGATIVE Urine Urobilinogen 1.0 Ur Leukocyte Esterase MODERATE H Urine RBC >100 H Urine WBC 6-10 H Ur Epithelial Cells FEW Amorphous Sediment MODERATE URATES Urine Bacteria 1+ H Home Medication Medication Instructions Recorded Type Abiraterone Acetate [Zytiga] 1,000 mg PO DAILY 10/09/16 History FLUoxetine HCL [Prozac*] 20 mg PO DAILY 10/09/16 History Furosemide [Lasix] 20 mg PO DAILY 10/09/16 History Gabapentin [Neurontin] 200 mg PO HS 10/09/16 History Memantine HCl 5 mg PO BID 10/09/16 History Potassium Citrate [Potassium 10 meq PO BID 10/09/16 History Citrate ER] Prednisone 10 mg PO DAILY 10/09/16 History Fluticasone Propionate Nasal 50 mcg NS HS 10/11/16 History [Flonase] Loratadine [Claritin] 10 mg PO Q48HR 10/11/16 History Current Medications Generic Name Dose Route Start Last Admin Trade Name Freq PRN Reason Stop Dose Admin Acetaminophen 650 mg 10/11/16 15:13 10/12/16 09:03 Tylenol PO 12/10/16 15:12 650 mg Q4H PRN Administration pain Acetylcysteine 3 ml 10/12/16 13:00 10/13/16 12:23 Mucomyst 10% N 12/11/16 12:59 3 ml Q6HRT GLORIA Administration Albuterol Sulfate 2.5 mg 10/11/16 14:49 10/13/16 12:23 Albuterol 2.5mg/3ml Neb Ud N 12/10/16 14:48 2.5 mg Q4H PRN Administration Shortness of Breath or Wheeze Fluoxetine HCl 10 mg 10/12/16 09:00 10/13/16 10:15 Prozac PO 12/10/16 08:59 10 mg DAILY GLORIA Administration Fluticasone Propionate 1 spr 10/11/16 21:00 10/12/16 20:39 Flonase NS 12/10/16 20:59 1 spr HS GLORIA Administration Furosemide 20 mg 10/09/16 14:57 10/13/16 10:22 Lasix PO 12/08/16 14:56 20 mg DAILY GLORIA Administration Gabapentin 200 mg 10/09/16 21:00 10/12/16 20:37 Neurontin PO 12/08/16 20:59 200 mg HS GLORIA Administration Heparin Sodium (Porcine) 5,000 units 10/09/16 21:00 10/13/16 10:16 Heparin SUBQ 12/08/16 20:59 5,000 units Q12H GLORIA Administration Dextrose/Sodium Chloride 1,000 mls @ 100 mls/hr 10/12/16 15:06 10/13/16 03:31 D5-0.45ns IV 12/11/16 15:05 100 mls/hr .Q10H GLORIA Administration Levofloxacin 500 mg in 100 mls @ 100 mls/hr 10/12/16 18:30 10/12/16 18:46 Levaquin Pb IV 12/11/16 18:29 100 mls/hr Q24HR GLORIA Administration Levothyroxine Sodium 0.2 mg 10/11/16 07:30 10/13/16 10:22 Synthroid PO 12/10/16 07:29 0.2 mg QDAC GLORIA Administration Loratadine 10 mg 10/11/16 14:45 10/11/16 16:53 Claritin PO 12/10/16 14:44 10 mg Q48HR GLORIA Administration Lorazepam 1 mg 10/10/16 18:55 10/11/16 00:16 Ativan PO 12/09/16 18:54 1 mg Q6HR PRN Administration Anxiety Protocol Memantine 5 mg 10/09/16 14:57 10/13/16 10:15 Namenda PO 12/08/16 14:56 5 mg BID GLORIA Administration Miscellaneous 1,000 mg 10/09/16 14:57 Abiraterone Acetate [Zytiga] PO 12/08/16 14:56 DAILY GLORIA Miscellaneous 1 ea 10/09/16 16:52 Vte Chemical Prophylaxis Screen/ Admission 12/08/16 16:51 PRN PRN PROTOCOL Potassium Chloride 10 meq 10/10/16 12:00 10/13/16 10:15 Klor-Con PO 12/09/16 11:59 10 meq BID GLORIA Administration Prednisone 10 mg 10/12/16 09:00 10/13/16 10:14 Deltasone PO 12/11/16 08:59 10 mg DAILY GLORIA Administration Theophylline 100 mg 10/10/16 12:00 07/25/17 10:15 Kali-Dur PO 12/09/16 11:59 100 mg DAILY GLORIA Administration Zolpidem Tartrate 5 mg 10/11/16 14:19 10/12/16 20:36 Ambien PO 12/09/16 18:55 5 mg HS PRN Administration Insomnia Review of Systems: A 12 point ROS was reviewed with the pertinent positive and negatives noted in the HPI. Social History Smoking Status Unknown if ever smoked Drug Use No Alcohol Use No Family Medical History Family Medical History Start: 10/09/16 14: 12 Freq: ONCE Status: Active Document 10/09/16 14:50 PMELEESAKashif (Rec: 10/09/16 16:16 PMENDOZKashif AVERY CAMILLEA2) Family Medical History Sister Living Status Other Medical History Hx of heart failure. History provided by family. Pt. unable to state due to mental status Mother History Unknown Yes Physical Exam: General: Comfortable, not in acute distress, obese. HEENT: Head: Normocephalic, atraumatic. Oral cavity: moist [place] tongue, no thrush. Eyes: Pallor is present, no icterus. EOMI. Neck: Supple, no JVD. No use of accessory neck muscles. Cardio: S1 and S2 within normal limits. No murmur no gallop. Respiratory: S1 and S2 within normal limits regular rhythm no murmur or gallop. Abdominal: Soft, nontender, nondistended. Bowel sounds present Genital/Urinary: Extremities: No cyanosis, no clubbing, and edema. Neurological: Consused. able to move all 4 extremities. Assessment: 1. UTI. 2. Hematuria. 3. Dementia. 4. Coronary artery disease. 5. History of prostate CA. 6. Acute cerebral infarct (ischemic, thalamus L > R) . 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 8. Obesity. Plan: Change Levaquin 250 mg by mouth daily for 7 days. Check renal ultrasound to rule out any mass. Thank you, Dr Mckeon for involving me in taking care of Mr Manuel. Malik Silva Devesh N., M.D. [id number]
--- NOTE | 2016-10-13 12:35 | Diagnostic Imaging Report ---
Carotid ultrasound HISTORY: CVA COMPARISON: None Technique: Longitudinal and transverse sonographic sector images of the carotid arteries were obtained with doppler analysis. FINDINGS: Exam is limited as patient was uncooperative during the exam. Exam of the right side demonstrates generalized intimal thickening and mild atherosclerotic vascular disease. Exam of the left side demonstrates generalized intimal thickening and mild to moderate atherosclerotic vascular disease. The velocity and velocity ratios are within normal limits. Antegrade vertebral artery flow is demonstrated bilaterally. IMPRESSION: Mild generalized atherosclerotic vascular disease. No evidence of hemodynamic significant stenosis.
--- NOTE | 2016-10-13 15:25 | General Progress Note ---
Subjective - Review of Systems Service Date: 10/13/16 Objective - Results Result Diagrams: 10/12/16 06:10 10/12/16 06:10 Recent Labs: Laboratory Last Values WBC 4.2 Th/cmm (4.8-10.8) L D 10/12/16 06:10 RBC 4.83 Mil/cmm (3.80-5.80) 10/12/16 06:10 Hgb 13.8 gm/dL (12.6-17.4) 10/12/16 06:10 Hct 42.3 % (39.0-49.0) 10/12/16 06:10 MCV 87.5 fl (80-99) 10/12/16 06:10 MCH 28.7 pg (27.0-31.0) 10/12/16 06:10 MCHC Differential 32.7 pg (28.0-36.0) 10/12/16 06:10 RDW 18.2 % (11.5-20.0) 10/12/16 06:10 Plt Count 150 Th/cmm (150-400) D 10/12/16 06:10 MPV 9.8 fl 10/12/16 06:10 Neutrophils % 71.7 % (40.0-80.0) 10/09/16 07:30 Band Neutrophils % 2 % (0-10) 10/12/16 06:10 Lymphocytes % 19.9 % (20.0-50.0) L 10/09/16 07:30 Monocytes % 7.3 % (2.0-10.0) 10/09/16 07:30 Eosinophils % 1.1 % (0.0-5.0) 10/09/16 07:30 Basophils % 0.0 % (0.0-2.0) 10/09/16 07:30 Neutrophils (Manual) 82 % (40-80) H 10/12/16 06:10 Lymphocytes 9 % (20-50) L 10/12/16 06:10 Monocytes 6 % (2-10) 10/12/16 06:10 Eosinophils 1 % (0-5) 10/12/16 06:10 Platelet Estimate ADEQUATE (NORMAL) 10/12/16 06:10 Platelet Morphology PLATELET CLUMPS SEEN (NORMAL) 10/12/16 06:10 Poikilocytosis 1+ 10/12/16 06:10 RBC Morph Micro Appear ABNORMAL (NORMAL) 10/12/16 06:10 PT 10.1 SECONDS (9.5-11.5) 10/09/16 07:30 INR 0.97 (0.5-1.4) 10/09/16 07:30 PTT (Actin FS) 25.5 SECONDS (26.0-38.0) L 10/09/16 07:30 Sodium 134 mEq/L (136-145) L 10/12/16 06:10 Potassium 3.7 mEq/L (3.5-5.1) 10/12/16 06:10 Chloride 102 mEq/L (98-107) 10/12/16 06:10 Carbon Dioxide 25.3 mEq/L (21.0-31.0) 10/12/16 06:10 Anion Gap 10.4 (7.0-16.0) 10/12/16 06:10 BUN 9 mg/dL (7-25) 10/12/16 06:10 Creatinine 0.8 mg/dL (0.7-1.3) 10/12/16 06:10 Est GFR ( Amer) TNP 10/12/16 06:10 Est GFR (Non-Af Amer) TNP 10/12/16 06:10 BUN/Creatinine Ratio 11.3 10/12/16 06:10 Glucose 124 mg/dL (70-105) H 10/12/16 06:10 POC Glucose 78 MG/DL (70 - 105) 10/09/16 15:20 Calcium 8.6 mg/dL (8.6-10.3) 10/12/16 06:10 Total Bilirubin 0.7 mg/dL (0.3-1.0) 10/09/16 07:30 AST 22 U/L (13-39) 10/09/16 07:30 ALT 14 U/L (7-52) 10/09/16 07:30 Alkaline Phosphatase 122 U/L (34-104) H 10/09/16 07:30 Ammonia 29 umol/L (16-53) 10/11/16 14:36 Creatine Kinase 27 U/L (30-223) L 10/09/16 07:30 Troponin I 0.01 ng/mL (0.01-0.05) 10/09/16 07:30 Total Protein 5.7 gm/dL (6.0-8.3) L 10/09/16 07:30 Albumin 2.8 gm/dL (4.2-5.5) L 10/09/16 07:30 Globulin 2.9 gm/dL 10/09/16 07:30 Albumin/Globulin Ratio 1.0 (1.0-1.8) 10/09/16 07:30 Triglycerides 82 mg/dL (<150) 10/12/16 06:10 Cholesterol 159 mg/dL (<200) 10/12/16 06:10 LDL Cholesterol Direct 59 mg/dL (75-193) L 10/12/16 06:10 HDL Cholesterol 87 mg/dL (23-92) 10/12/16 06:10 TSH 0.89 uIU/ml (0.34-5.60) 10/12/16 06:10 Urine Source CLEAN C 10/12/16 17:50 Urine Color JANET 10/12/16 17:50 Urine Clarity HAZY (CLEAR) 10/12/16 17:50 Urine pH 6.0 10/12/16 17:50 Ur Specific [place] 1.015 (1.005-1.030) 10/12/16 17:50 Urine Protein 100 mg/dL (NEGATIVE) H 10/12/16 17:50 Urine Glucose (UA) NEGATIVE mg/dL (NEGATIVE) 10/12/16 17:50 Urine Ketones NEGATIVE mg/dL (NEGATIVE) 10/12/16 17:50 Urine Blood LARGE (NEGATIVE) H 10/12/16 17:50 Urine Nitrate NEGATIVE (NEGATIVE) 10/12/16 17:50 Urine Bilirubin NEGATIVE (NEGATIVE) 10/12/16 17:50 Urine Urobilinogen 1.0 E.U./dL (0.2 - 1.0) 10/12/16 17:50 Ur Leukocyte Esterase MODERATE (NEGATIVE) H 10/12/16 17:50 Urine RBC >100 /hpf (0-5) H 10/12/16 17:50 Urine WBC 6-10 /hpf (0-5) H 10/12/16 17:50 Ur Epithelial Cells FEW /lpf (FEW) 10/12/16 17:50 Amorphous Sediment MODERATE URATES (NONE SEEN) 10/12/16 17:50 Urine Bacteria 1+ /hpf (NONE SEEN) H 10/12/16 17:50 RPR NONREACTIVE (NONREACTIVE) 10/09/16 07:30 - Physical Exam Vitals and I&O: Vital Signs Temp 98.0 F 10/13/16 08:00 Pulse 88 10/13/16 12:40 Resp 18 10/13/16 12:40 BP 117/60 10/13/16 10:22 Pulse Ox 95 10/13/16 12:40 Intake & Output 10/12/16 10/13/16 10/13/16 18:59 06:59 18:59 Intake Total 850 Balance 850 Weight (lbs) 79.379 kg 79.379 kg Intake: Oral 850 Other: # Voids 3 # Bowel Movements 1 Active Medications: Current Medications Acetaminophen (Tylenol) 650 mg PO Q4H PRN PRN Reason: pain Stop: 12/10/16 15:12 Last Admin: 10/12/16 09:03 Dose: 650 mg Acetylcysteine (Mucomyst 10%) 3 ml HHN Q6HRT [facility] Stop: 12/11/16 12:59 Last Admin: 10/13/16 12:23 Dose: 3 ml Albuterol Sulfate (Albuterol 2.5mg/3ml Neb Ud) 2.5 mg HHN Q4H PRN PRN Reason: Shortness of Breath or Wheeze Stop: 12/10/16 14:48 Last Admin: 10/13/16 12:23 Dose: 2.5 mg Fluoxetine HCl (Prozac) 10 mg PO DAILY [facility] Stop: 12/10/16 08:59 Last Admin: 10/13/16 10:15 Dose: 10 mg Fluticasone Propionate (Flonase) 1 spr NS HS [facility] Stop: 12/10/16 20:59 Last Admin: 10/12/16 20:39 Dose: 1 spr Furosemide (Lasix) 20 mg PO DAILY [facility] Stop: 12/08/16 14:56 Last Admin: 10/13/16 10:22 Dose: 20 mg Gabapentin (Neurontin) 200 mg PO HS [facility] Stop: 12/08/16 20:59 Last Admin: 10/12/16 20:37 Dose: 200 mg Heparin Sodium (Porcine) (Heparin) 5,000 units SUBQ Q12H [facility] Stop: 12/08/16 20:59 Last Admin: 10/13/16 10:16 Dose: 5,000 units Dextrose/Sodium Chloride (D5-0.45ns) 1,000 mls @ 100 mls/hr IV .Q10H [facility] Stop: 12/11/16 15:05 Last Admin: 10/13/16 03:31 Dose: 100 mls/hr Levofloxacin (Levaquin) 250 mg PO DAILY [facility] Stop: 10/21/16 08:59 Levothyroxine Sodium (Synthroid) 0.2 mg PO QDAC [facility] Stop: 12/10/16 07:29 Last Admin: 10/13/16 10:22 Dose: 0.2 mg Loratadine (Claritin) 10 mg PO Q48HR [facility] Stop: 12/10/16 14:44 Last Admin: 10/11/16 16:53 Dose: 10 mg Lorazepam (Ativan) 1 mg PO Q6HR PRN; Protocol PRN Reason: Anxiety Stop: 12/09/16 18:54 Last Admin: 10/11/16 00:16 Dose: 1 mg Memantine (Namenda) 5 mg PO BID [facility] Stop: 12/08/16 14:56 Last Admin: 10/13/16 10:15 Dose: 5 mg Miscellaneous (Abiraterone Acetate [Zytiga]) 1,000 mg PO DAILY [facility] Stop: 12/08/16 14:56 Miscellaneous (Vte Chemical Prophylaxis Screen/ Admission) 1 ea MC PRN PRN PRN Reason: PROTOCOL Stop: 12/08/16 16:51 Potassium Chloride (Klor-Con) 10 meq PO BID [facility] Stop: 12/09/16 11:59 Last Admin: 10/13/16 10:15 Dose: 10 meq Prednisone (Deltasone) 10 mg PO DAILY [facility] Stop: 12/11/16 08:59 Last Admin: 10/13/16 10:14 Dose: 10 mg Theophylline (Kali-Dur) 100 mg PO DAILY [facility] Stop: 12/09/16 11:59 Last Admin: 10/13/16 10:15 Dose: 100 mg Zolpidem Tartrate (Ambien) 5 mg PO HS PRN PRN Reason: Insomnia Stop: 12/09/16 18:55 Last Admin: 10/12/16 20:36 Dose: 5 mg General: No acute distress HEENT: Atraumatic Cardiovascular: Regular rate, Normal S1, Normal S2 Assessment/Plan - Problem List Patient Problems: All Active Problems CVA (cerebral vascular accident) (Acute) I63.9 - Assessment Assessment: aloc symtomatic bradycardia h/o dementia h/o cad h/o dementia h/o htn h/o prostate ca - Plan Plan: workup for aloc nuerology consult w/u for rachael cardia cardiology consult placemet? and rest as per ordersheet
[2016-10-13] MEDS: Fluticasone Propionate 0.05mg/Actuation 16gm Nasal Spray NS SCH (21:04)
[2016-10-14] MEDS: Acetylcysteine 10% 10 ML VIAL HHN SCH ×3 (01:07→15:23)
[2016-10-14] MEDS: D5-0.45NS 1,000 ML IV SCH ×3 (01:25→23:00)
[2016-10-14] MEDS: Levothyroxine 0.1 Mg Tab PO SCH (06:34)
[2016-10-14] MEDS: Potassium Chloride 10 mEq ER Tab PO SCH ×2 (08:32→16:38)
[2016-10-14] MEDS: Theophylline 100 mg ER Tab PO SCH (08:52)
--- NOTE | 2016-10-14 12:57 | Diagnostic Imaging Report ---
Renal ultrasound HISTORY: Mass. COMPARISON: None Technique: Sonography of the kidneys and urinary bladder was performed in multiple planes. FINDINGS: Exam is limited as patient had difficulty cooperating for the examination. The right kidney measures 12.3 x 5.7 cm. There is a 2.9 cm cyst of the superior pole. There is focal dilatation of a right mid renal calyx. Additional sonolucent consistent with a cyst is seen along the inferior pole measuring 1.5 cm. The left kidney measures 10.9 x 6.5 cm demonstrating [id number] left hydronephrosis. Left renal cysts are seen the largest the midpole measuring 2.5 x 2.3 cm. There is echogenic structure along the left renal collecting system. There is echogenic focus adjacent to the wall of the urinary bladder. IMPRESSION: Mild to moderate left renal hydronephrosis. There is echogenic structure within the left renal collecting system and proximal left ureter ureter. Findings probably represent a left sided nephroureteral stent. CT follow-up would provide additional detail and assessment. Bilateral renal cysts. Focal dilatation of a right renal calyx. Small echogenic foci along the adjacent to the wall of the urinary bladder possibly representing stones or debris. Please correlate with UA findings.
--- NOTE | 2016-10-14 15:57 | General Progress Note ---
Subjective - Review of Systems Events since last encounter: 86 Y male admitted to the hospital for ALOC, bradycardia. patient is severely demented Objective - Results Result Diagrams: 10/12/16 06:10 10/12/16 06:10 Recent Labs: Laboratory Last Values WBC 4.2 Th/cmm (4.8-10.8) L D 10/12/16 06:10 RBC 4.83 Mil/cmm (3.80-5.80) 10/12/16 06:10 Hgb 13.8 gm/dL (12.6-17.4) 10/12/16 06:10 Hct 42.3 % (39.0-49.0) 10/12/16 06:10 MCV 87.5 fl (80-99) 10/12/16 06:10 MCH 28.7 pg (27.0-31.0) 10/12/16 06:10 MCHC Differential 32.7 pg (28.0-36.0) 10/12/16 06:10 RDW 18.2 % (11.5-20.0) 10/12/16 06:10 Plt Count 150 Th/cmm (150-400) D 10/12/16 06:10 MPV 9.8 fl 10/12/16 06:10 Neutrophils % 71.7 % (40.0-80.0) 10/09/16 07:30 Band Neutrophils % 2 % (0-10) 10/12/16 06:10 Lymphocytes % 19.9 % (20.0-50.0) L 10/09/16 07:30 Monocytes % 7.3 % (2.0-10.0) 10/09/16 07:30 Eosinophils % 1.1 % (0.0-5.0) 10/09/16 07:30 Basophils % 0.0 % (0.0-2.0) 10/09/16 07:30 Neutrophils (Manual) 82 % (40-80) H 10/12/16 06:10 Lymphocytes 9 % (20-50) L 10/12/16 06:10 Monocytes 6 % (2-10) 10/12/16 06:10 Eosinophils 1 % (0-5) 10/12/16 06:10 Platelet Estimate ADEQUATE (NORMAL) 10/12/16 06:10 Platelet Morphology PLATELET CLUMPS SEEN (NORMAL) 10/12/16 06:10 Poikilocytosis 1+ 10/12/16 06:10 RBC Morph Micro Appear ABNORMAL (NORMAL) 10/12/16 06:10 PT 10.1 SECONDS (9.5-11.5) 10/09/16 07:30 INR 0.97 (0.5-1.4) 10/09/16 07:30 PTT (Actin FS) 25.5 SECONDS (26.0-38.0) L 10/09/16 07:30 Sodium 134 mEq/L (136-145) L 10/12/16 06:10 Potassium 3.7 mEq/L (3.5-5.1) 10/12/16 06:10 Chloride 102 mEq/L (98-107) 10/12/16 06:10 Carbon Dioxide 25.3 mEq/L (21.0-31.0) 10/12/16 06:10 Anion Gap 10.4 (7.0-16.0) 10/12/16 06:10 BUN 9 mg/dL (7-25) 10/12/16 06:10 Creatinine 0.8 mg/dL (0.7-1.3) 10/12/16 06:10 Est GFR ( Amer) TNP 10/12/16 06:10 Est GFR (Non-Af Amer) TNP 10/12/16 06:10 BUN/Creatinine Ratio 11.3 10/12/16 06:10 Glucose 124 mg/dL (70-105) H 10/12/16 06:10 POC Glucose 78 MG/DL (70 - 105) 10/09/16 15:20 Calcium 8.6 mg/dL (8.6-10.3) 10/12/16 06:10 Total Bilirubin 0.7 mg/dL (0.3-1.0) 10/09/16 07:30 AST 22 U/L (13-39) 10/09/16 07:30 ALT 14 U/L (7-52) 10/09/16 07:30 Alkaline Phosphatase 122 U/L (34-104) H 10/09/16 07:30 Ammonia 29 umol/L (16-53) 10/11/16 14:36 Creatine Kinase 27 U/L (30-223) L 10/09/16 07:30 Troponin I 0.01 ng/mL (0.01-0.05) 10/09/16 07:30 Total Protein 5.7 gm/dL (6.0-8.3) L 10/09/16 07:30 Albumin 2.8 gm/dL (4.2-5.5) L 10/09/16 07:30 Globulin 2.9 gm/dL 10/09/16 07:30 Albumin/Globulin Ratio 1.0 (1.0-1.8) 10/09/16 07:30 Triglycerides 82 mg/dL (<150) 10/12/16 06:10 Cholesterol 159 mg/dL (<200) 10/12/16 06:10 LDL Cholesterol Direct 59 mg/dL (75-193) L 10/12/16 06:10 HDL Cholesterol 87 mg/dL (23-92) 10/12/16 06:10 TSH 0.89 uIU/ml (0.34-5.60) 10/12/16 06:10 Urine Source CLEAN C 10/12/16 17:50 Urine Color JANET 10/12/16 17:50 Urine Clarity HAZY (CLEAR) 10/12/16 17:50 Urine pH 6.0 10/12/16 17:50 Ur Specific [place] 1.015 (1.005-1.030) 10/12/16 17:50 Urine Protein 100 mg/dL (NEGATIVE) H 10/12/16 17:50 Urine Glucose (UA) NEGATIVE mg/dL (NEGATIVE) 10/12/16 17:50 Urine Ketones NEGATIVE mg/dL (NEGATIVE) 10/12/16 17:50 Urine Blood LARGE (NEGATIVE) H 10/12/16 17:50 Urine Nitrate NEGATIVE (NEGATIVE) 10/12/16 17:50 Urine Bilirubin NEGATIVE (NEGATIVE) 10/12/16 17:50 Urine Urobilinogen 1.0 E.U./dL (0.2 - 1.0) 10/12/16 17:50 Ur Leukocyte Esterase MODERATE (NEGATIVE) H 10/12/16 17:50 Urine RBC >100 /hpf (0-5) H 10/12/16 17:50 Urine WBC 6-10 /hpf (0-5) H 10/12/16 17:50 Ur Epithelial Cells FEW /lpf (FEW) 10/12/16 17:50 Amorphous Sediment MODERATE URATES (NONE SEEN) 10/12/16 17:50 Urine Bacteria 1+ /hpf (NONE SEEN) H 10/12/16 17:50 RPR NONREACTIVE (NONREACTIVE) 10/09/16 07:30 - Physical Exam Vitals and I&O: Vital Signs Temp 97.8 F 10/14/16 12:00 Pulse 85 10/14/16 15:24 Resp 18 10/14/16 15:24 BP 128/67 10/14/16 12:00 Pulse Ox 95 10/14/16 15:24 Intake & Output 10/13/16 10/14/16 10/14/16 18:59 06:59 18:59 Intake Total 1400 4350.295 2408 Balance 1400 2219.548 1523 Weight (lbs) 79.379 kg 75.381 kg 72.257 kg Intake: Intake, IV Amount 1000 492.845 2935 D5-0.45NS 1,000 ml @ 100 1000 751.202 3544 mls/hr IV .Q10H [facility] Rx#: [id number] Oral 400 120 Other: # Voids 3 3 # Bowel Movements 0 1 Active Medications: Current Medications Acetaminophen (Tylenol) 650 mg PO Q4H PRN PRN Reason: pain Stop: 12/10/16 15:12 Last Admin: 10/12/16 09:03 Dose: 650 mg Acetylcysteine (Mucomyst 10%) 3 ml HHN Q6HRT [facility] Stop: 12/11/16 12:59 Last Admin: 10/14/16 15:23 Dose: 3 ml Albuterol Sulfate (Albuterol 2.5mg/3ml Neb Ud) 2.5 mg HHN Q4H PRN PRN Reason: Shortness of Breath or Wheeze Stop: 12/10/16 14:48 Last Admin: 10/13/16 20:44 Dose: 2.5 mg Fluoxetine HCl (Prozac) 10 mg PO DAILY [facility] Stop: 12/10/16 08:59 Last Admin: 10/14/16 08:33 Dose: 10 mg Fluticasone Propionate (Flonase) 1 spr NS HS [facility] Stop: 12/10/16 20:59 Last Admin: 10/13/16 21:04 Dose: 1 spr Furosemide (Lasix) 20 mg PO DAILY [facility] Stop: 12/08/16 14:56 Last Admin: 10/14/16 08:33 Dose: 20 mg Gabapentin (Neurontin) 200 mg PO HS [facility] Stop: 12/08/16 20:59 Last Admin: 10/13/16 21:04 Dose: 200 mg Heparin Sodium (Porcine) (Heparin) 5,000 units SUBQ Q12H [facility] Stop: 12/08/16 20:59 Last Admin: 10/14/16 08:33 Dose: 5,000 units Dextrose/Sodium Chloride (D5-0.45ns) 1,000 mls @ 100 mls/hr IV .Q10H [facility] Stop: 12/11/16 15:05 Last Admin: 10/14/16 12:58 Dose: 100 mls/hr Levofloxacin (Levaquin) 250 mg PO DAILY [facility] Stop: 10/21/16 08:59 Last Admin: 10/14/16 08:33 Dose: 250 mg Levothyroxine Sodium (Synthroid) 0.2 mg PO QDAC [facility] Stop: 12/10/16 07:29 Last Admin: 10/14/16 06:34 Dose: 0.2 mg Loratadine (Claritin) 10 mg PO Q48HR [facility] Stop: 12/10/16 14:44 Last Admin: 10/13/16 17:51 Dose: 10 mg Lorazepam (Ativan) 1 mg PO Q6HR PRN; Protocol PRN Reason: Anxiety Stop: 12/09/16 18:54 Last Admin: 10/11/16 00:16 Dose: 1 mg Memantine (Namenda) 5 mg PO BID [facility] Stop: 12/08/16 14:56 Last Admin: 10/14/16 08:32 Dose: 5 mg Miscellaneous (Abiraterone Acetate [Zytiga]) 1,000 mg PO DAILY [facility] Stop: 12/08/16 14:56 Miscellaneous (Vte Chemical Prophylaxis Screen/ Admission) 1 ea MC PRN PRN PRN Reason: PROTOCOL Stop: 12/08/16 16:51 Potassium Chloride (Klor-Con) 10 meq PO BID [facility] Stop: 12/09/16 11:59 Last Admin: 10/14/16 08:32 Dose: 10 meq Prednisone (Deltasone) 10 mg PO DAILY [facility] Stop: 12/11/16 08:59 Last Admin: 10/14/16 08:33 Dose: 10 mg Theophylline (Kali-Dur) 100 mg PO DAILY [facility] Stop: 12/09/16 11:59 Last Admin: 10/14/16 08:52 Dose: 100 mg Zolpidem Tartrate (Ambien) 5 mg PO HS PRN PRN Reason: Insomnia Stop: 12/09/16 18:55 Last Admin: 10/13/16 21:04 Dose: 5 mg General: No acute distress HEENT: Atraumatic Cardiovascular: Regular rate, Normal S1, Normal S2 Assessment/Plan - Problem List Patient Problems: All Active Problems CVA (cerebral vascular accident) (Acute) I63.9 - Assessment Assessment: aloc symtomatic bradycardia h/o dementia h/o cad h/o dementia h/o htn h/o prostate ca - Plan Plan: workup for aloc nuerology consult w/u for rachael cardia cardiology consult placemet? and rest as per ordersheet Nutritional Asmnt/Malnutr-PDOC - Dietary Evaluation Malnutrition Findings (Please click <Entered> for more info): Nutritional Asmnt/Malnutrition Start: 10/14/16 11: 59 Text: Status: Complete Freq: Document 10/14/16 12:00 GSUN (Rec: 10/14/16 12:11 [email or web address]) Nutritional Asmnt/Malnutrition Patient General Information Nutritional Screening Moderate Risk Screening Diagnosis ALOC, symptomatic bradycardia Pertinent Medical Hx/Surgical Hx CAD, HTN, dementia, GERD, bipolar, weakness, prostate cancer Subjective Information 86 year old male, [place]ic speaking, family at bedside. Pt made eye contact, greeted RD. Obtained CBW 159.3lb via bedscale with equipment removed. Pt appeared appropriate for age, mild wasting to chest. Avg PO intake 75-100% of meals, meeting nutritional needs. Spoke to THERAPEUTIC SALES SPECIALIST, THERAPEUTIC SALES SPECIALIST denied nutritional concerns at this time. Current Diet Order/ Nutrition Support [facility] soft ground Pertinent Medications D5-0.45ns, Lasix, Synthroid, Klor-Con Pertinent Labs Reviewed Nutritional Hx/Data Height 1.78 m Height (Calculated Centimeters) 177.8 Current Weight (lbs) 72.257 kg Weight (Calculated Kilograms) 72.3 Weight (Calculated Grams) 13824.3 [place] Body Weight 166 Weight Status Approriate GI Symptoms Skin Integrity/Comment: Luke Armstrong. aerospace mechanic: skin tear. Current %PO Good (75-100%) Estimated Nutritional Goals BEE in Kcals: Using Current wt Calories/Kcals/Kg CBW 159.3lb/72.4kg Kcals Calculated 1810-2172kcal (25-30kcal/kg) Protein: Using Current wt Protein Calculated 72g (1g/kg) Fluid: ml 1810-2172ml (1ml/kcal) Nutritional Problem 1. Problem Problem No nutritional problem at this time. Intervention/Recommendation Comments 1. Continue with current diet order. Avg PO intake is adequate. Expected Outcomes/Goals Expected Outcomes/Goals 1. PO intake continue to meet at least 75% of estimated nutritional needs.
[2016-10-14] MEDS: Albuterol Nebulizer 2.5mg/3mL HHN PRN (20:07)
[2016-10-14] MEDS: Fluticasone Propionate 0.05mg/Actuation 16gm Nasal Spray NS SCH (21:04)
[2016-10-15] MEDS: Albuterol Nebulizer 2.5mg/3mL HHN PRN ×4 (01:08→19:55)
[2016-10-15] MEDS: Acetylcysteine 10% 10 ML VIAL HHN SCH ×4 (01:11→19:55)
[2016-10-15] MEDS: Levothyroxine 0.1 Mg Tab PO SCH (06:34)
[2016-10-15 06:56] LABS: % BASOPHILS 0.8 % (0.0-2.0); % EOSINOPHILS 1.2 % (0.0-5.0); % LYMPHOCYTES 11.7 % (20.0-50.0); % MONOCYTES 9.1 % (2.0-10.0); % NEUTROPHILS 77.2 % (40.0-80.0); MEAN CELL VOLUME 86.8 fl (80-99); MEAN CORPUSCULAR HEMOGLOBIN 29.2 pg (27.0-31.0); MEAN CORPUSCULAR HGB CONC 33.6 pg (28.0-36.0); MEAN PLATELET VOLUME 6.6 fl; NEUTROPHILE ABSOLUTE 4.1 Th/cmm (1.8-8.0); PLATELET COUNT 149 Th/cmm (150-400); RED BLOOD COUNT 3.86 Mil/cmm (3.80-5.80)
[2016-10-15 07:17] LABS: HEMATOCRIT 33.5 % (39.0-49.0); HEMOGLOBIN 11.3 gm/dL (12.6-17.4); WHITE BLOOD COUNT 5.3 Th/cmm (4.8-10.8)
[2016-10-15 07:30] LABS: ANION GAP 7.7 (7.0-16.0); BUN - UREA NITROGEN 11 mg/dL (7-25); BUN/CREATININE RATIO 18.3; CALCIUM SERUM 8.5 mg/dL (8.6-10.3); CARBON DIOXIDE 21.8 mEq/L (21.0-31.0); CHLORIDE 107 mEq/L (98-107); CREATININE - SERUM 0.6 mg/dL (0.7-1.3); GLUCOSE 112 mg/dL (70-105); POTASSIUM SERUM 3.5 mEq/L (3.5-5.1); SODIUM SERUM 133 mEq/L (136-145)
--- NOTE | 2016-10-15 10:05 | General Progress Note ---
Subjective - Review of Systems Events since last encounter: patient continues to be confused Objective - Results Result Diagrams: 10/15/16 06:40 10/15/16 06:40 Recent Labs: Laboratory Last Values WBC 5.3 Th/cmm (4.8-10.8) D 10/15/16 06:40 RBC 3.86 Mil/cmm (3.80-5.80) 10/15/16 06:40 Hgb 11.3 gm/dL (12.6-17.4) L D 10/15/16 06:40 Hct 33.5 % (39.0-49.0) L D 10/15/16 06:40 MCV 86.8 fl (80-99) 10/15/16 06:40 MCH 29.2 pg (27.0-31.0) 10/15/16 06:40 MCHC Differential 33.6 pg (28.0-36.0) 10/15/16 06:40 RDW 18.0 % (11.5-20.0) 10/15/16 06:40 Plt Count 149 Th/cmm (150-400) L 10/15/16 06:40 MPV 6.6 fl 10/15/16 06:40 Neutrophils % 77.2 % (40.0-80.0) 10/15/16 06:40 Band Neutrophils % 2 % (0-10) 10/12/16 06:10 Lymphocytes % 11.7 % (20.0-50.0) L 10/15/16 06:40 Monocytes % 9.1 % (2.0-10.0) 10/15/16 06:40 Eosinophils % 1.2 % (0.0-5.0) 10/15/16 06:40 Basophils % 0.8 % (0.0-2.0) 10/15/16 06:40 Neutrophils (Manual) 82 % (40-80) H 10/12/16 06:10 Lymphocytes 9 % (20-50) L 10/12/16 06:10 Monocytes 6 % (2-10) 10/12/16 06:10 Eosinophils 1 % (0-5) 10/12/16 06:10 Platelet Estimate ADEQUATE (NORMAL) 10/12/16 06:10 Platelet Morphology PLATELET CLUMPS SEEN (NORMAL) 10/12/16 06:10 Poikilocytosis 1+ 10/12/16 06:10 RBC Morph Micro Appear ABNORMAL (NORMAL) 10/12/16 06:10 PT 10.1 SECONDS (9.5-11.5) 10/09/16 07:30 INR 0.97 (0.5-1.4) 10/09/16 07:30 PTT (Actin FS) 25.5 SECONDS (26.0-38.0) L 10/09/16 07:30 Sodium 133 mEq/L (136-145) L 10/15/16 06:40 Potassium 3.5 mEq/L (3.5-5.1) 10/15/16 06:40 Chloride 107 mEq/L (98-107) 10/15/16 06:40 Carbon Dioxide 21.8 mEq/L (21.0-31.0) 10/15/16 06:40 Anion Gap 7.7 (7.0-16.0) 10/15/16 06:40 BUN 11 mg/dL (7-25) 10/15/16 06:40 Creatinine 0.6 mg/dL (0.7-1.3) L 10/15/16 06:40 Est GFR ( Amer) TNP 10/15/16 06:40 Est GFR (Non-Af Amer) TNP 10/15/16 06:40 BUN/Creatinine Ratio 18.3 10/15/16 06:40 Glucose 112 mg/dL (70-105) H 10/15/16 06:40 POC Glucose 78 MG/DL (70 - 105) 10/09/16 15:20 Calcium 8.5 mg/dL (8.6-10.3) L 10/15/16 06:40 Total Bilirubin 0.7 mg/dL (0.3-1.0) 10/09/16 07:30 AST 22 U/L (13-39) 10/09/16 07:30 ALT 14 U/L (7-52) 10/09/16 07:30 Alkaline Phosphatase 122 U/L (34-104) H 10/09/16 07:30 Ammonia 29 umol/L (16-53) 10/11/16 14:36 Creatine Kinase 27 U/L (30-223) L 10/09/16 07:30 Troponin I 0.01 ng/mL (0.01-0.05) 10/09/16 07:30 Total Protein 5.7 gm/dL (6.0-8.3) L 10/09/16 07:30 Albumin 2.8 gm/dL (4.2-5.5) L 10/09/16 07:30 Globulin 2.9 gm/dL 10/09/16 07:30 Albumin/Globulin Ratio 1.0 (1.0-1.8) 10/09/16 07:30 Triglycerides 82 mg/dL (<150) 10/12/16 06:10 Cholesterol 159 mg/dL (<200) 10/12/16 06:10 LDL Cholesterol Direct 59 mg/dL (75-193) L 10/12/16 06:10 HDL Cholesterol 87 mg/dL (23-92) 10/12/16 06:10 TSH 0.89 uIU/ml (0.34-5.60) 10/12/16 06:10 Urine Source CLEAN C 10/12/16 17:50 Urine Color JANET 10/12/16 17:50 Urine Clarity HAZY (CLEAR) 10/12/16 17:50 Urine pH 6.0 10/12/16 17:50 Ur Specific [place] 1.015 (1.005-1.030) 10/12/16 17:50 Urine Protein 100 mg/dL (NEGATIVE) H 10/12/16 17:50 Urine Glucose (UA) NEGATIVE mg/dL (NEGATIVE) 10/12/16 17:50 Urine Ketones NEGATIVE mg/dL (NEGATIVE) 10/12/16 17:50 Urine Blood LARGE (NEGATIVE) H 10/12/16 17:50 Urine Nitrate NEGATIVE (NEGATIVE) 10/12/16 17:50 Urine Bilirubin NEGATIVE (NEGATIVE) 10/12/16 17:50 Urine Urobilinogen 1.0 E.U./dL (0.2 - 1.0) 10/12/16 17:50 Ur Leukocyte Esterase MODERATE (NEGATIVE) H 10/12/16 17:50 Urine RBC >100 /hpf (0-5) H 10/12/16 17:50 Urine WBC 6-10 /hpf (0-5) H 10/12/16 17:50 Ur Epithelial Cells FEW /lpf (FEW) 10/12/16 17:50 Amorphous Sediment MODERATE URATES (NONE SEEN) 10/12/16 17:50 Urine Bacteria 1+ /hpf (NONE SEEN) H 10/12/16 17:50 RPR NONREACTIVE (NONREACTIVE) 10/09/16 07:30 - Physical Exam Vitals and I&O: Vital Signs Temp 97.6 F 10/15/16 04:00 Pulse 74 10/15/16 07:11 Resp 18 10/15/16 07:12 BP 108/56 10/15/16 04:00 Pulse Ox 94 10/15/16 07:11 Intake & Output 10/14/16 10/15/16 10/15/16 18:59 06:59 18:59 Intake Total 1000 1250 Balance 1000 1250 Weight (lbs) 72.257 kg 72.393 kg Intake: Intake, IV Amount 1000 1000 D5-0.45NS 1,000 ml @ 100 1000 1000 mls/hr IV .Q10H GLORIA Rx#: [id number] Oral 250 Other: # Voids 3 # Bowel Movements 1 Active Medications: Current Medications Acetaminophen (Tylenol) 650 mg PO Q4H PRN PRN Reason: pain Stop: 12/10/16 15:12 Last Admin: 10/12/16 09:03 Dose: 650 mg Acetylcysteine (Mucomyst 10%) 3 ml HHN Q6HRT GLORIA Stop: 12/11/16 12:59 Last Admin: 10/15/16 07:10 Dose: 3 ml Albuterol Sulfate (Albuterol 2.5mg/3ml Neb Ud) 2.5 mg HHN Q4H PRN PRN Reason: Shortness of Breath or Wheeze Stop: 12/10/16 14:48 Last Admin: 10/15/16 07:09 Dose: 2.5 mg Fluoxetine HCl (Prozac) 10 mg PO DAILY GLORIA Stop: 12/10/16 08:59 Last Admin: 10/14/16 08:33 Dose: 10 mg Fluticasone Propionate (Flonase) 1 spr NS HS GLORIA Stop: 12/10/16 20:59 Last Admin: 10/14/16 21:04 Dose: 1 spr Furosemide (Lasix) 20 mg PO DAILY [facility] Stop: 12/08/16 14:56 Last Admin: 10/14/16 08:33 Dose: 20 mg Gabapentin (Neurontin) 200 mg PO HS GLORIA Stop: 12/08/16 20:59 Last Admin: 10/14/16 21:04 Dose: 200 mg Heparin Sodium (Porcine) (Heparin) 5,000 units SUBQ Q12H GLORIA Stop: 12/08/16 20:59 Last Admin: 10/14/16 21:03 Dose: 5,000 units Dextrose/Sodium Chloride (D5-0.45ns) 1,000 mls @ 100 mls/hr IV .Q10H GLORIA Stop: 12/11/16 15:05 Last Admin: 10/14/16 23:00 Dose: 100 mls/hr Levofloxacin (Levaquin) 250 mg PO DAILY [facility]IA Stop: 10/21/16 08:59 Last Admin: 10/14/16 08:33 Dose: 250 mg Levothyroxine Sodium (Synthroid) 0.2 mg PO QDAC GLORIA Stop: 12/10/16 07:29 Last Admin: 10/15/16 06:34 Dose: 0.2 mg Loratadine (Claritin) 10 mg PO Q48HR GLORIA Stop: 12/10/16 14:44 Last Admin: 10/13/16 17:51 Dose: 10 mg Lorazepam (Ativan) 1 mg PO Q6HR PRN; Protocol PRN Reason: Anxiety Stop: 12/09/16 18:54 Last Admin: 10/11/16 00:16 Dose: 1 mg Memantine (Namenda) 5 mg PO BID [facility] Stop: 12/08/16 14:56 Last Admin: 10/14/16 16:38 Dose: 5 mg Miscellaneous (Abiraterone Acetate [Zytiga]) 1,000 mg PO DAILY [facility] Stop: 12/08/16 14:56 Miscellaneous (Vte Chemical Prophylaxis Screen/ Admission) 1 ea MC PRN PRN PRN Reason: PROTOCOL Stop: 12/08/16 16:51 Potassium Chloride (Klor-Con) 10 meq PO BID GLORIA Stop: 12/09/16 11:59 Last Admin: 10/14/16 16:38 Dose: 10 meq Prednisone (Deltasone) 10 mg PO DAILY [facility] Stop: 12/11/16 08:59 Last Admin: 10/14/16 08:33 Dose: 10 mg Theophylline (Kali-Dur) 100 mg PO DAILY [facility] Stop: 12/09/16 11:59 Last Admin: 10/14/16 08:52 Dose: 100 mg Zolpidem Tartrate (Ambien) 5 mg PO HS PRN PRN Reason: Insomnia Stop: 12/09/16 18:55 Last Admin: 10/14/16 21:13 Dose: 5 mg General: No acute distress HEENT: Atraumatic Cardiovascular: Regular rate, Normal S1, Normal S2 Assessment/Plan - Problem List Patient Problems: All Active Problems CVA (cerebral vascular accident) (Acute) I63.9 - Assessment Assessment: aloc symtomatic bradycardia h/o dementia h/o cad h/o dementia h/o htn h/o prostate ca - Plan Plan: workup for aloc nuerology consult w/u for rachael cardia cardiology consult [place]? and rest as per ordersheet Nutritional Asmnt/Malnutr-PDOC - Dietary Evaluation Malnutrition Findings (Please click <Entered> for more info): Nutritional Asmnt/Malnutrition Start: 10/14/16 11: 59 Text: Status: Complete Freq: Document 10/14/16 12:00 GSUN (Rec: 10/14/16 12:11 [email or web address]) Nutritional Asmnt/Malnutrition Patient General Information Nutritional Screening Moderate Risk Screening Diagnosis ALOC, symptomatic bradycardia Pertinent Medical Hx/Surgical Hx CAD, HTN, dementia, GERD, bipolar, weakness, prostate cancer Subjective Information 86 year old male, [place] speaking, family at bedside. Pt made eye contact, greeted RD. Obtained CBW 159.3lb via bedscale with equipment removed. Pt appeared appropriate for age, mild wasting to chest. Avg PO intake 75-100% of meals, meeting nutritional needs. Spoke to WHEELCHAIR DRIVER, WHEELCHAIR DRIVER denied nutritional concerns at this time. 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 Current %PO Good (75-100%) Estimated Nutritional Goals BEE in Kcals: Using Current wt Calories/Kcals/Kg CBW 159.3lb/72.4kg Kcals Calculated 1810-2172kcal (25-30kcal/kg) Protein: Using Current wt Protein Calculated 72g (1g/kg) Fluid: ml 1810-2172ml (1ml/kcal) Nutritional Problem 1. Problem Problem No nutritional problem at this time. Intervention/Recommendation Comments 1. Continue with current diet order. Avg PO intake is adequate. Expected Outcomes/Goals Expected Outcomes/Goals 1. PO intake continue to meet at least 75% of estimated nutritional needs.
[2016-10-15] MEDS: Potassium Chloride 10 mEq ER Tab PO SCH ×2 (10:09→18:17)
[2016-10-15] MEDS: Theophylline 100 mg ER Tab PO SCH (10:13)
[2016-10-15] MEDS: D5-0.45NS 1,000 ML IV SCH (10:14)
--- NOTE | 2016-10-15 13:37 | Infectious Disease Prog Note ---
Infectious Disease Subjective - Review of Systems Service Date: 10/15/16 Subjective: No new change, no fever.. Infectious Disease Objective - Results Result Diagrams: 10/15/16 06:40 10/15/16 06:40 Recent Labs: Laboratory Last Values WBC 5.3 Th/cmm (4.8-10.8) D 10/15/16 06:40 RBC 3.86 Mil/cmm (3.80-5.80) 10/15/16 06:40 Hgb 11.3 gm/dL (12.6-17.4) L D 10/15/16 06:40 Hct 33.5 % (39.0-49.0) L D 10/15/16 06:40 MCV 86.8 fl (80-99) 10/15/16 06:40 MCH 29.2 pg (27.0-31.0) 10/15/16 06:40 MCHC Differential 33.6 pg (28.0-36.0) 10/15/16 06:40 RDW 18.0 % (11.5-20.0) 10/15/16 06:40 Plt Count 149 Th/cmm (150-400) L 10/15/16 06:40 MPV 6.6 fl 10/15/16 06:40 Neutrophils % 77.2 % (40.0-80.0) 10/15/16 06:40 Band Neutrophils % 2 % (0-10) 10/12/16 06:10 Lymphocytes % 11.7 % (20.0-50.0) L 10/15/16 06:40 Monocytes % 9.1 % (2.0-10.0) 10/15/16 06:40 Eosinophils % 1.2 % (0.0-5.0) 10/15/16 06:40 Basophils % 0.8 % (0.0-2.0) 10/15/16 06:40 Neutrophils (Manual) 82 % (40-80) H 10/12/16 06:10 Lymphocytes 9 % (20-50) L 10/12/16 06:10 Monocytes 6 % (2-10) 10/12/16 06:10 Eosinophils 1 % (0-5) 10/12/16 06:10 Platelet Estimate ADEQUATE (NORMAL) 10/12/16 06:10 Platelet Morphology PLATELET CLUMPS SEEN (NORMAL) 10/12/16 06:10 Poikilocytosis 1+ 10/12/16 06:10 RBC Morph Micro Appear ABNORMAL (NORMAL) 10/12/16 06:10 PT 10.1 SECONDS (9.5-11.5) 10/09/16 07:30 INR 0.97 (0.5-1.4) 10/09/16 07:30 PTT (Actin FS) 25.5 SECONDS (26.0-38.0) L 10/09/16 07:30 Sodium 133 mEq/L (136-145) L 10/15/16 06:40 Potassium 3.5 mEq/L (3.5-5.1) 10/15/16 06:40 Chloride 107 mEq/L (98-107) 10/15/16 06:40 Carbon Dioxide 21.8 mEq/L (21.0-31.0) 10/15/16 06:40 Anion Gap 7.7 (7.0-16.0) 10/15/16 06:40 BUN 11 mg/dL (7-25) 10/15/16 06:40 Creatinine 0.6 mg/dL (0.7-1.3) L 10/15/16 06:40 Est GFR ( Amer) TNP 10/15/16 06:40 Est GFR (Non-Af Amer) TNP 10/15/16 06:40 BUN/Creatinine Ratio 18.3 10/15/16 06:40 Glucose 112 mg/dL (70-105) H 10/15/16 06:40 POC Glucose 78 MG/DL (70 - 105) 10/09/16 15:20 Calcium 8.5 mg/dL (8.6-10.3) L 10/15/16 06:40 Total Bilirubin 0.7 mg/dL (0.3-1.0) 10/09/16 07:30 AST 22 U/L (13-39) 10/09/16 07:30 ALT 14 U/L (7-52) 10/09/16 07:30 Alkaline Phosphatase 122 U/L (34-104) H 10/09/16 07:30 Ammonia 29 umol/L (16-53) 10/11/16 14:36 Creatine Kinase 27 U/L (30-223) L 10/09/16 07:30 Troponin I 0.01 ng/mL (0.01-0.05) 10/09/16 07:30 Total Protein 5.7 gm/dL (6.0-8.3) L 10/09/16 07:30 Albumin 2.8 gm/dL (4.2-5.5) L 10/09/16 07:30 Globulin 2.9 gm/dL 10/09/16 07:30 Albumin/Globulin Ratio 1.0 (1.0-1.8) 10/09/16 07:30 Triglycerides 82 mg/dL (<150) 10/12/16 06:10 Cholesterol 159 mg/dL (<200) 10/12/16 06:10 LDL Cholesterol Direct 59 mg/dL (75-193) L 10/12/16 06:10 HDL Cholesterol 87 mg/dL (23-92) 10/12/16 06:10 TSH 0.89 uIU/ml (0.34-5.60) 10/12/16 06:10 Urine Source CLEAN C 10/12/16 17:50 Urine Color JANET 10/12/16 17:50 Urine Clarity HAZY (CLEAR) 10/12/16 17:50 Urine pH 6.0 10/12/16 17:50 Ur Specific [place] 1.015 (1.005-1.030) 10/12/16 17:50 Urine Protein 100 mg/dL (NEGATIVE) H 10/12/16 17:50 Urine Glucose (UA) NEGATIVE mg/dL (NEGATIVE) 10/12/16 17:50 Urine Ketones NEGATIVE mg/dL (NEGATIVE) 10/12/16 17:50 Urine Blood LARGE (NEGATIVE) H 10/12/16 17:50 Urine Nitrate NEGATIVE (NEGATIVE) 10/12/16 17:50 Urine Bilirubin NEGATIVE (NEGATIVE) 10/12/16 17:50 Urine Urobilinogen 1.0 E.U./dL (0.2 - 1.0) 10/12/16 17:50 Ur Leukocyte Esterase MODERATE (NEGATIVE) H 10/12/16 17:50 Urine RBC >100 /hpf (0-5) H 10/12/16 17:50 Urine WBC 6-10 /hpf (0-5) H 10/12/16 17:50 Ur Epithelial Cells FEW /lpf (FEW) 10/12/16 17:50 Amorphous Sediment MODERATE URATES (NONE SEEN) 10/12/16 17:50 Urine Bacteria 1+ /hpf (NONE SEEN) H 10/12/16 17:50 RPR NONREACTIVE (NONREACTIVE) 10/09/16 07:30 - Physical Exam Vitals and I&O: Vital Signs Temp 97.6 F 10/15/16 04:00 Pulse 74 10/15/16 07:11 Resp 18 10/15/16 07:12 BP 124/73 10/15/16 10:09 Pulse Ox 94 10/15/16 07:11 Intake & Output 10/14/16 10/15/16 10/15/16 18:59 06:59 18:59 Intake Total 1000 1250 1000 Balance 1000 1250 1000 Weight (lbs) 72.257 kg 72.393 kg Intake: Intake, IV Amount 1000 1000 1000 D5-0.45NS 1,000 ml @ 100 1000 1000 1000 mls/hr IV .Q10H GLORIA Rx#: [id number] Oral 250 Other: # Voids 3 # Bowel Movements 1 Active Medications: Current Medications Acetaminophen (Tylenol) 650 mg PO Q4H PRN PRN Reason: pain Stop: 12/10/16 15:12 Last Admin: 10/12/16 09:03 Dose: 650 mg Acetylcysteine (Mucomyst 10%) 3 ml HHN Q6HRT GLORIA Stop: 12/11/16 12:59 Last Admin: 10/15/16 07:10 Dose: 3 ml Albuterol Sulfate (Albuterol 2.5mg/3ml Neb Ud) 2.5 mg HHN Q4H PRN PRN Reason: Shortness of Breath or Wheeze Stop: 12/10/16 14:48 Last Admin: 10/15/16 07:09 Dose: 2.5 mg Fluoxetine HCl (Prozac) 10 mg PO DAILY [facility] Stop: 12/10/16 08:59 Last Admin: 10/15/16 10:09 Dose: 10 mg Fluticasone Propionate (Flonase) 1 spr NS HS [facility]IA Stop: 12/10/16 20:59 Last Admin: 10/14/16 21:04 Dose: 1 spr Furosemide (Lasix) 20 mg PO DAILY [facility] Stop: 12/08/16 14:56 Last Admin: 10/15/16 10:09 Dose: 20 mg Gabapentin (Neurontin) 200 mg PO HS [facility]IA Stop: 12/08/16 20:59 Last Admin: 10/14/16 21:04 Dose: 200 mg Heparin Sodium (Porcine) (Heparin) 5,000 units SUBQ Q12H [facility]IA Stop: 12/08/16 20:59 Last Admin: 10/15/16 10:10 Dose: 5,000 units Dextrose/Sodium Chloride (D5-0.45ns) 1,000 mls @ 100 mls/hr IV .Q10H GLORIA Stop: 12/11/16 15:05 Last Admin: 10/15/16 10:14 Dose: 100 mls/hr Levofloxacin (Levaquin) 250 mg PO DAILY [facility] Stop: 10/21/16 08:59 Last Admin: 10/15/16 10:09 Dose: 250 mg Levothyroxine Sodium (Synthroid) 0.2 mg PO QDAC GLORIA Stop: 12/10/16 07:29 Last Admin: 10/15/16 06:34 Dose: 0.2 mg Loratadine (Claritin) 10 mg PO Q48HR GLORIA Stop: 12/10/16 14:44 Last Admin: 10/13/16 17:51 Dose: 10 mg Lorazepam (Ativan) 1 mg PO Q6HR PRN; Protocol PRN Reason: Anxiety Stop: 12/09/16 18:54 Last Admin: 10/11/16 00:16 Dose: 1 mg Memantine (Namenda) 5 mg PO BID [facility] Stop: 12/08/16 14:56 Last Admin: 10/15/16 10:09 Dose: 5 mg Miscellaneous (Abiraterone Acetate [Zytiga]) 1,000 mg PO DAILY [facility] Stop: 12/08/16 14:56 Miscellaneous (Vte Chemical Prophylaxis Screen/ Admission) 1 ea MC PRN PRN PRN Reason: PROTOCOL Stop: 12/08/16 16:51 Potassium Chloride (Klor-Con) 10 meq PO BID [facility] Stop: 12/09/16 11:59 Last Admin: 10/15/16 10:09 Dose: 10 meq Prednisone (Deltasone) 10 mg PO DAILY [facility] Stop: 12/11/16 08:59 Last Admin: 10/15/16 10:09 Dose: 10 mg Theophylline (Kali-Dur) 100 mg PO DAILY [facility] Stop: 12/09/16 11:59 Last Admin: 10/15/16 10:13 Dose: 100 mg Zolpidem Tartrate (Ambien) 5 mg PO HS PRN PRN Reason: Insomnia Stop: 12/09/16 18:55 Last Admin: 10/14/16 21:13 Dose: 5 mg General: no acute distress, well developed, well nourished HEENT: atraumatic, normocephalic, EOMI Neck: supple, rigid, no thyromegaly Cardiovascular: S1S2, regular Lungs: clear to auscultation bilaterally, clear to percussion Abdomen: soft, no tender, no distended, no mass Extremities: no cyanosis, no clubbing, no edema Neurological: awake, alert, oriented Infectious Disease Assmt/Plan - Problem List Patient Problems: All Active Problems CVA (cerebral vascular accident) (Acute) I63.9 - Assessment Assessment: 1. UTI. 2. Hematuria. 3. Dementia. 4. Coronary artery disease. 5. History of prostate CA. 6. Acute cerebral infarct (ischemic, thalamus L > R) . 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 8. Obesity. 9 Left sided hydronephrosis with stent in place. Plan: Change Levaquin 250 mg by mouth daily for 14 days. Needs to follow up with his urologist. Nutritional Asmnt/Malnutr-PDOC - Dietary Evaluation Malnutrition Findings (Please click <Entered> for more info): Nutritional Asmnt/Malnutrition Start: 10/14/16 11: 59 Text: Status: Complete Freq: Document 10/14/16 12:00 BONITA (Rec: 10/14/16 12:11 [email or web address]) Nutritional Asmnt/Malnutrition Patient General Information Nutritional Screening Moderate Risk Screening Diagnosis ALOC, symptomatic bradycardia Pertinent Medical Hx/Surgical Hx CAD, HTN, dementia, GERD, bipolar, weakness, prostate cancer Subjective Information 86 year old male, Malay speaking, family at bedside. Pt made eye contact, greeted RD. Obtained CBW 159.3lb via bedscale with equipment removed. Pt appeared appropriate for age, mild wasting to chest. Avg PO intake 75-100% of meals, meeting nutritional needs. Spoke to FILTER WORKER, FILTER WORKER denied nutritional concerns at this time. Current Diet Order/ Nutrition Support [facility] soft ground Pertinent Medications D5-0.45ns, Lasix, Synthroid, Klor-Con Pertinent Labs Reviewed Nutritional Hx/Data Height 1.78 m Height (Calculated Centimeters) 177.8 Current Weight (lbs) 72.257 kg Weight (Calculated Kilograms) 72.3 Weight (Calculated Grams) 23229.3 [place] Body Weight 166 Weight Status Approriate GI Symptoms Skin Integrity/Comment: Luke Armstrong. 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 Current %PO Good (75-100%) Estimated Nutritional Goals BEE in Kcals: Using Current wt Calories/Kcals/Kg CBW 159.3lb/72.4kg Kcals Calculated 1810-2172kcal (25-30kcal/kg) Protein: Using Current wt Protein Calculated 72g (1g/kg) Fluid: ml 1810-2172ml (1ml/kcal) Nutritional Problem 1. Problem Problem No nutritional problem at this time. Intervention/Recommendation Comments 1. Continue with current diet order. Avg PO intake is adequate. Expected Outcomes/Goals Expected Outcomes/Goals 1. PO intake continue to meet at least 75% of estimated nutritional needs.
[2016-10-15] MEDS: Fluticasone Propionate 0.05mg/Actuation 16gm Nasal Spray NS SCH (21:01)
--- NOTE | 2016-10-16 03:50 | Consultation ---
DATE OF CONSULTATION: 10/15/2016 DIRECTOR COMMUNITY [employer]GANIZATION: Roger Duarte M.D. REASON FOR CONSULTATION: Evaluation of a left hydronephrosis with nephroureteral stent. HISTORY OF PRESENT ILLNESS: This is an 86-year-old male with past medical history of left hydronephrosis, who was brought in because of altered level of consciousness. The patient was admitted on 10/09/2016 because of altered level of consciousness. Head CT revealed bilateral basal ganglia lacunar infarct, old right parietal lobe infarct. This was followed by an MRI, which revealed bilateral thalamic acute infarcts, left greater than right. Carotid ultrasound showed no significant stenosis. This was followed by an echocardiogram which showed LVH, LAE, with ejection fraction of 60%. Renal ultrasound revealed [id number] left hydronephrosis with nephroureteral stent, bilateral renal cysts. PAST MEDICAL HISTORY: 1.Coronary artery disease. 2.Essential hypertension. 3.GERD. 4.History of cerebrovascular accident. 5.Prostate CA. 6.Alzheimer dementia. CURRENT MEDICATIONS: He is currently on acetaminophen, ____, fluoxetine, fluticasone, furosemide, Levaquin, levothyroxine, potassium chloride, prednisone, zolpidem. ALLERGIES: CYCLOBENZAPRINE, SULFA.. SOCIAL AND FAMILY HISTORY: I was unable to obtain directly from the patient because he remains nonverbal. REVIEW OF SYSTEMS: Again, I was unable to decipher from the patient because of his dementia and unable to provide any accurate information. PHYSICAL EXAMINATION: GENERAL: The patient is awake, not in any form of distress. VITAL SIGNS: His blood pressure is ____, pulse 67, and afebrile. SKIN: Good turgor, warm, no rash, no jaundice appreciated. HEENT: Head normocephalic, atraumatic. Eyes: Extraocular muscles intact. Pupils equal, round, reactive to light and accommodates. Anicteric sclerae. [place] conjunctivae. Nose, midline nasal septum. Mouth, moist mucosa with poor dentition. NECK: Supple, no adenopathy, no thyromegaly, no bruits. Trachea palpated in the midline. CHEST AND CVS: S1, S2. No rub, murmur nor gallop appreciated. Point of maximal impulse, fifth intercostal space, left midclavicular line. No abdominal or femoral bruits appreciated. LUNGS: Equal expansion. No use of accessory muscles. No supraclavicular retractions, decreased breath sounds, clear to auscultation without any wheeze. ABDOMEN: Mildly globular, soft. Positive for bowel sounds. No bruits either diastolic or systolic. RECTAL: Lax sphincter tone. GENITOURINARY: Normal appearing male genitalia. MUSCULOSKELETAL: No effusions present in his joints, but unable to assess his range of motion. EXTREMITIES: No evidence of edema, cyanosis or clubbing with palpable femoral, but unable to fully appreciate popliteal and dorsalis pedis pulses. NEUROLOGIC: The patient is awake; however, remains nonverbal, unable to comprehend by neuro commands, so I was not able to pursue further my neuro exam. LABORATORY DATA: Did reveal white count 5.3, hemoglobin ____, hematocrit 33.5, platelets 149, polys 77.2%. Sodium is 133, potassium 3.5, chloride 107, bicarbonate 21, BUN 11, creatinine 0.6, glucose 112, calcium 8.5. IMPRESSION: 1.Mild to moderate left hydronephrosis with a nephroureteral stent. 2.Bilateral renal cysts. 3.Acute bilateral thalamic infarcts, left greater than right. 4.Acute and complicated urinary tract infection. 5.Coronary artery disease. 6.Essential hypertension. 7.Gastroesophageal reflux disease. 8.Previous history of cerebrovascular accident. 9.Prostate cancer. 10.Alzheimer dementia. PLAN: 1.Agree with followup with Urology for replacement of stent every 3 months to avoid worsening left hydronephrosis. 2.Agree with Levaquin for his urinary tract infection. 3.Agree with discharge today. JOB# [id number]
--- NOTE | 2016-10-19 15:17 | Discharge Summary ---
DATE OF DISCHARGE: 10/15/2016 This is an elderly male patient admitted for increasing confusion, increasing lethargy and he is known to have history of hypertension, coronary artery disease, dementia, prostate CA and initial diagnosis was ALOC, symptomatic bradycardia, history of hypertension, prostate CA, rule out TIA, rule out CVA. The patient was admitted for extensive neurological workup and a CAT scan showed he had a small stroke in the basal ganglia and also had previous strokes. Neurology will see the patient. Physical therapy was given. The patient was improved and patient was in stable condition on October 15 and insurance made arrangement for the patient to go to one of the nursing homes in [place]. I contacted facility and he was discharged in stable condition with the following diagnoses of status post prior strokes and dementia and history of prostate carcinoma and history of hypertension and bradycardia, resolved. JOB# [id number]
== END 2016-10-15 22:00 | DRG 64 ==
LOC: ER 07:16 → TELE 08:41 → MSI 10-15 17:56
PROVIDERS: ADMIT Internal Medicine; ATTEND Internal Medicine
DX: I63.9 Cerebral infarction, unspecified (principal); E43 Unspecified severe protein-calorie malnutrition; G92 Toxic encephalopathy; I48.91 Unspecified atrial fibrillation; N39.0 Urinary tract infection, site not specified; N13.30 Unspecified hydronephrosis; G30.9 Alzheimer's disease, unspecified; F02.81 Dementia in other diseases classified elsewhere, unspecified severity, with behavioral disturbance; F33.9 Major depressive disorder, recurrent, unspecified; I25.10 Atherosclerotic heart disease of native coronary artery without angina pectoris; I10 Essential (primary) hypertension; K21.9 Gastro-esophageal reflux disease without esophagitis; Z66 Do not resuscitate; R31.9 Hematuria, unspecified; E66.9 Obesity, unspecified; N28.1 Cyst of kidney, acquired; Z85.46 Personal history of malignant neoplasm of prostate; Z88.8 Allergy status to other drugs, medicaments and biological substances; Z88.2 Allergy status to sulfonamides; Z79.899 Other long term (current) drug therapy; Z86.73 Personal history of transient ischemic attack (TIA), and cerebral infarction without residual deficits; Z68.22 Body mass index [BMI] 22.0-22.9, adult; Z92.3 Personal history of irradiation
CPT/HCPCS: 36415-UA; 70450-TC; 71010-TC; 76770-TC; 80048-TC; 80053-TC; 80061-TC; 81001-TC; 82140-TC; 82550-TC; 82948-90; 84443-TC; 84484-TC; 85007-TC; 85025-TC; 85027-TC; 85610-TC; 85730-TC; 86592-TC; 93005; 93880-TC; 94640; 94760; 97530; J1644; J1956; J2060; J7042; J7613; X3904; Z7610; Z7610-TC